=== PATIENT | female | born 1955 | race Caucasian/White ===

== ENCOUNTER 2016-10-30 16:58 | Emergency (ER) | payer BC ==
[2016-10-30] MEDS ORDERED: NS 0.9% 1000 ML* 2,000 ML IV ONE (18:45)
[2016-10-30] MEDS ORDERED: Ketorolac INJ* 30 MG/ML 1 ML VIAL IV ONE (18:45)
[2016-10-30 19:16] LABS: Hematocrit 45 % (35-47); Hemoglobin 15.2 g/dl (12.0-16.0); Mean Corpuscular HGB Conc 34 g/dl (31-36); Mean Corpuscular Hemoglobin 31 pg (27-31); Mean Corpuscular Volume 92 fL (80-97); Mean Platelet Volume 9 um3 (7.4-10.4); Red Blood Count 4.89 10^6/ul (4.0-5.4); Red Cell Distribution Width 13 % (10.5-15); White Blood Count 25.8 10^3/ul (3.5-10.8)
[2016-10-30 19:17] LABS: Add Diff/Slide Review? Slide Review Added; Comments Flag Yes
[2016-10-30 19:21] LABS: Urine Bacteria Absent (Absent); Urine Bilirubin Negative (Negative); Urine Glucose Negative (Negative); Urine Nitrite Negative (Negative)
[2016-10-30 19:28] LABS: Albumin 4.2 g/dL (3.2-5.2); BUN/Creatinine Ratio 11.8 (8-20); Calcium 9.4 mg/dL (8.6-10.3); EGFR African American 113.1 (>60); Globulin 3.1 g/dL (2-4); Potassium 3.8 mmol/L (3.5-5.0); Total Bilirubin 0.7 mg/dL (0.2-1.0); Total Protein 7.3 g/dL (6.4-8.9)
--- NOTE | 2016-10-30 19:28 | RAD ---
INDICATION: Fever and cough. COMPARISON: There are no prior studies available for comparison. TECHNIQUE: Dual-energy PA and lateral views of the chest were obtained. FINDINGS: The heart is within normal limits in size. Mediastinal and hilar contours appear within normal limits. The lungs are hyperinflated. There is a small infiltrate within the right middle lobe. No pleural effusion is seen. There is a 1.0 x 0.6 cm nodular density which projects over the left upper lobe only seen in the PA view. IMPRESSION: 1. POSSIBLE LEFT UPPER LOBE PULMONARY NODULE RECOMMEND A FOLLOW-UP NONCONTRAST CT OF THE CHEST FOR FURTHER EVALUATION. 2. SMALL RIGHT MIDDLE LOBE INFILTRATE.
[2016-10-30 19:30] LABS: Troponin I 0.01 ng/mL (<0.04)
[2016-10-30] MEDS ORDERED: Levofloxacin TAB* 250 MG PO ONE (20:00)
--- NOTE | 2016-10-30 20:20 | ED ---
I, Oh,Sadie, scribed for Junior Jordan MD on 10/30/16 at 1846 . HPI Febrile Illness - HPI Summary HPI Summary: This 61 y/o female presents to ED from [facility] for elevated temperature with reported temperature of 102 F. Negative rash, YU, neck pain, n/ v, or sore throat. Positive productive cough, rhinorrhea, decreased appetite, fatigue, and right lower back pain. Hematuria is reported from urgent care. She has been taking Sudafed to control her congestion. Pt dnenies any known tick bite or injury. PMHx includes UTI, borderline HTN that is not controlled with any medication, and COPD. Pt is a smoker. Primary care involves Dr. Rockwell at [place]. - History of Current Complaint Chief Complaint: EDFever Time Seen by Provider: 10/30/16 18:35 Hx Obtained From: Patient Onset/Duration: Started Weeks Ago, Atraumatic, Still Present Timing: Constant Pain Intensity: 0 Pain Scale Used: 0-10 Numeric Aggravating Factors: Nothing Alleviating Factors: Nothing - Allergy/Home Medications Allergies/Adverse Reactions: Allergies Allergy/AdvReac Type Severity Reaction Status Date / Time Sulfa Antibiotics Allergy Intermediate Rash Verified 10/30/16 17:13 PMH/Surg Hx/FS Hx/Imm Hx Cardiovascular History: Reports: Hx Hypertension - borderline Respiratory History: Reports: Hx Chronic Obstructive Pulmonary Disease (COPD) History: Reports: Other Problems/Disorders - UTI Infectious Disease History: No Infectious Disease History: Denies: Traveled Outside the [place] in Last 30 Days - Family History Known Family History: Negative: Hypertension - Social History Alcohol Use: Daily Hx Tobacco Use: Yes Review of Systems Positive: Fever Positive: Nasal Discharge, Other - head congestion. Negative: Sore Throat Positive: Cough - productive cough. Negative: Shortness Of Breath Positive: hematuria Negative: Rash All Other Systems Reviewed And Are Negative: Yes Physical Exam - Summary Physical Exam Summary: The patient is well-nourished inmild distress. The skin is hot to touch and dry. HEENT: The head is normocephalic and atraumatic. The pupils are equal and reactive. The conjunctivae are clear and without drainage. Nares are patent and without drainage. Mouth reveals moist mucous membranes and the throat is without erythema and exudate. The external ears are intact. The ear canals are patent and without drainage. The tympanic membranes are intact. Tenderness to percussion to right maxillary sinus. Neck is supple with full range of motion and non-tender. Supple. Negative lymphadenopathy,. There are no carotid bruits. There is no neck vein distension. Respiratory: Chest is non-tender. Lungs are clear to auscultation and breath sounds are symmetrical and equal. Cardiovascular: Hear is regular rate and rhythm. There is no murmur or rub auscultated. There is no peripheral edema and pulses are symmetrical and equal. Abdomen: The abdomen is soft and non-tender. There are normal bowel sounds heard in all four quadrants and there is no organomegaly palpated. Negative CVA tenderness. Musculoskeletal: There is no back pain noted. Extremities are non-tender with full range of motion. There is 3 seconds capillary refill. There is no peripheral edema or calf tenderness elicited. Neurological: Patient is alert and oriented to person, place and time. The patient has symmetrical motor strength in all four extremities. Cranial nerves are grossly intact. Deep tendon reflexes are symmetrical and equal in all four extremities. Psychiatric: The patient has an appropriate affect and does not exhibit any anxiety or depression. warm to touch Triage Information Reviewed: Yes Vital Signs On Initial Exam: Initial Vitals Temp Pulse Resp BP Pulse Ox 99.0 F 100 16 144/86 97 10/30/16 17:01 10/30/16 17:01 10/30/16 17:01 10/30/16 17:01 10/30/16 17:01 Vital Signs Reviewed: Yes Diagnostics - Vital Signs Vital Signs Temp Pulse Resp BP Pulse Ox 10/30/16 17:01 99.0 F 100 16 144/86 97 - Laboratory Lab Results: Lab Results 10/30/16 10/30/16 10/30/16 Range/Units 18:50 18:50 18:50 WBC 25.8 H (3.5-10.8) 10^3/ul RBC 4.89 (4.0-5.4) 10^6/ul Hgb 15.2 (12.0-16.0) g/dl Hct 45 (35-47) % MCV 92 (80-97) fL MCH 31 (27-31) pg MCHC 34 (31-36) g/dl RDW 13 (10.5-15) % Plt Count 298 (150-450) 10^3/ul MPV 9 (7.4-10.4) um3 Neut % (Auto) 85.7 H (38-83) % Lymph % (Auto) 6.0 L (25-47) % [place] % (Auto) 6.8 (1-9) % Eos % (Auto) 0 (0-6) % Baso % (Auto) 1.5 (0-2) % Absolute Neuts (auto) 22.1 H (1.5-7.7) 10^3/ul Absolute Lymphs (auto) 1.6 (1.0-4.8) 10^3/ul Absolute Monos (auto) 1.8 H (0-0.8) 10^3/ul Absolute Eos (auto) 0 (0-0.6) 10^3/ul Absolute Basos (auto) 0.4 H (0-0.2) 10^3/ul Absolute Nucleated RBC 0.02 10^3/ul Nucleated RBC % 0.1 INR (Anticoag Therapy) 1.02 (0.89-1.11) APTT 33.5 (26.0-36.3) seconds Sodium (133-145) mmol/L Potassium (3.5-5.0) mmol/L Chloride (101-111) mmol/L Carbon Dioxide (22-32) mmol/L Anion Gap (2-11) mmol/L BUN (6-24) mg/dL Creatinine (0.51-0.95) mg/dL Est GFR ( Amer) (>60) Est GFR (Non-Af Amer) (>60) BUN/Creatinine Ratio (8-20) Glucose (70-100) mg/dL Lactic Acid (0.5-2.0) mmol/L Calcium (8.6-10.3) mg/dL Total Bilirubin (0.2-1.0) mg/dL AST (13-39) U/L ALT (7-52) U/L Alkaline Phosphatase (34-104) U/L Total Creatine Kinase (10-223) U/L Troponin I (<0.04) ng/mL Total Protein (6.4-8.9) g/dL Albumin (3.2-5.2) g/dL Globulin (2-4) g/dL Albumin/Globulin Ratio (1-3) Urine Color Yellow Urine Appearance Clear Urine pH 5.0 (5-9) Ur Specific [place] 1.008 L (1.010-1.030) Urine Protein Negative (Negative) Urine Ketones 1+ H (Negative) Urine Blood 1+ H (Negative) Urine Nitrate Negative (Negative) Urine Bilirubin Negative (Negative) Urine Urobilinogen Negative (Negative) Ur Leukocyte Esterase Negative (Negative) Urine WBC (Auto) Trace(0-5/hpf) (Absent) Urine RBC (Auto) Trace(0-2/hpf) (Absent) Ur Squamous Epith Cells Present H (Absent) Urine Bacteria Absent (Absent) Urine Glucose Negative (Negative) 10/30/16 10/30/16 Range/Units 18:50 18:50 WBC (3.5-10.8) 10^3/ul RBC (4.0-5.4) 10^6/ul Hgb (12.0-16.0) g/dl Hct (35-47) % MCV (80-97) fL MCH (27-31) pg MCHC (31-36) g/dl RDW (10.5-15) % Plt Count (150-450) 10^3/ul MPV (7.4-10.4) um3 Neut % (Auto) (38-83) % Lymph % (Auto) (25-47) % [place] % (Auto) (1-9) % Eos % (Auto) (0-6) % Baso % (Auto) (0-2) % Absolute Neuts (auto) (1.5-7.7) 10^3/ul Absolute Lymphs (auto) (1.0-4.8) 10^3/ul Absolute Monos (auto) (0-0.8) 10^3/ul Absolute Eos (auto) (0-0.6) 10^3/ul Absolute Basos (auto) (0-0.2) 10^3/ul Absolute Nucleated RBC 10^3/ul Nucleated RBC % INR (Anticoag Therapy) (0.89-1.11) APTT (26.0-36.3) seconds Sodium 133 (133-145) mmol/L Potassium 3.8 (3.5-5.0) mmol/L Chloride 100 L (101-111) mmol/L Carbon Dioxide 24 (22-32) mmol/L Anion Gap 9 (2-11) mmol/L BUN 8 (6-24) mg/dL Creatinine 0.68 (0.51-0.95) mg/dL Est GFR ( Amer) 113.1 (>60) Est GFR (Non-Af Amer) 88.0 (>60) BUN/Creatinine Ratio 11.8 (8-20) Glucose 114 H (70-100) mg/dL Lactic Acid 0.8 (0.5-2.0) mmol/L Calcium 9.4 (8.6-10.3) mg/dL Total Bilirubin 0.70 (0.2-1.0) mg/dL AST 16 (13-39) U/L ALT 11 (7-52) U/L Alkaline Phosphatase 92 (34-104) U/L Total Creatine Kinase 27 (10-223) U/L Troponin I 0.01 (<0.04) ng/mL Total Protein 7.3 (6.4-8.9) g/dL Albumin 4.2 (3.2-5.2) g/dL Globulin 3.1 (2-4) g/dL Albumin/Globulin Ratio 1.4 (1-3) Urine Color Urine Appearance Urine pH (5-9) Ur Specific [place] (1.010-1.030) Urine Protein (Negative) Urine Ketones (Negative) Urine Blood (Negative) Urine Nitrate (Negative) Urine Bilirubin (Negative) Urine Urobilinogen (Negative) Ur Leukocyte Esterase (Negative) Urine WBC (Auto) (Absent) Urine RBC (Auto) (Absent) Ur Squamous Epith Cells (Absent) Urine Bacteria (Absent) Urine Glucose (Negative) Result Diagrams: 10/30/16 18:50 10/30/16 18:50 Lab Statement: Any lab studies that have been ordered have been reviewed, and results considered in the medical decision making process. - Radiology CXR Xray Interpretation: Positive (See Comments) - 1. POSSIBLE LEFT UPPER LOBE PULMONARY NODULE RECOMMEND A FOLLOW-UP NONCONTRAST CT OF THE CHEST FOR FURTHER EVALUATION. 2. SMALL RIGHT MIDDLE LOBE INFILTRATE Radiology Interpretation Completed By: Radiologist Re-Evaluation - Re-Evaluation First Eval Re-Evaluation Time: 20:03 Comment: MD in room to share CXR and bloodwork to pt. She is offered admission for observation, but pt refuses. She understands that she needs to closely f/u with her primary care provider regarding nodule noted in today's CXR. She also expresses understanding that she may get worse, and is to return to ED if she develops fever, SOB, and n/v. Course/Dx - Course Assessment/Plan: Bloodwork indicates elevated WBC and CXR indicates right middle lobe pneumonia. CXR results and blood work are shared with pt, and pt is strongly recommended to f/u with her primary care doctor regarding nodule noted CXR. Pt expresses understanding. Pt is offerred admission for observation, but pt refused admission. Pt is discharged with levaquin rx and outpatient follow up. - Febrile Illness Differential Diagnoses: Bacteremia, Pneumonia, Pyelonephritis, Viremia - Diagnoses Provider Diagnoses: Pneumonia Discharge - Discharge Plan Condition: Stable Disposition: HOME Prescriptions: Levofloxacin TAB* [Levaquin TAB*] 750 mg PO DAILY #7 tab Patient Education Materials: Pneumonia (ED), Levofloxacin (By mouth) Forms: *Work Release Referrals: Beverly Rockwell MD [Primary Care Provider] - 2 Days The documentation as recorded by the Howard haro Soohyun accurately reflects the service I personally performed and the decisions made by me, Junior Jordan MD.
== END 2016-10-30 21:17 | disposition home or self-care (01) ==
LOC: ED 16:58
DX: J18.9 Pneumonia, unspecified organism (principal); R05 Cough; J34.89 Other specified disorders of nose and nasal sinuses
CPT/HCPCS: 36415; 71020; 80053; 81003; 81015; 82550; 83605; 84484; 85025; 85610; 85730; 87040; 96374; 99283; A9270-GY; J1885

== ENCOUNTER 2018-07-02 08:45 | Inpatient (IN) | payer OTHER ==
--- NOTE | 2018-07-02 09:06 | ED ---
Neurological HPI - HPI Summary HPI Summary: This pt is a 62 y/o female presenting to [facility] c/o right leg weakness and bilateral leg numbness x5 days. Pt reports she started to feel off balance and had unsteady gait since 06/27/18. Pt states she was still walking around and even went out for dinner but was unsteady. She also has been having headaches since 2 days ago. Denies back pain, urinary or fecal dysfunction, slurred speech , difficulty speaking, confusion. PMHx: HTN, for which she takes medications. She did not take antihypertensive medication today yet. - History of Current Complaint Chief Complaint: EDWeakness Stated Complaint: LOST FEELING IN LEGS PER PT Time Seen by Provider: 07/02/18 08:54 Hx Obtained From: Patient Onset/Duration: Started days ago, Still Present Timing: Constant Current Severity: Severe Neurological Deficit Location: RLE Pain Intensity: 0 - denies pain Pain Scale Used: 0-10 Numeric Character: Weak - right leg, Numbness/Tingling - bilateral legs Aggravating: Nothing Alleviating: Nothing Associated Signs and Symptoms: Positive: Unsteady Gait, Headache, Weakness - right leg, Numbness - bilateral legs. Negative: Confusion, Incontinent Bladder/ Bowel, Fever - Allergy/Home Medications Allergies/Adverse Reactions: Allergies Allergy/AdvReac Type Severity Reaction Status Date / Time Sulfa (Sulfonamide Allergy Rash Verified 07/02/18 11:20 Antibiotics) Home Medications: Home Medications Diltiazem CD CAP* [Cardizem CD CAP*] 180 mg PO DAILY 07/02/18 [History Confirmed 07/02/18] PMH/Surg Hx/FS Hx/Imm Hx Cardiovascular History: Reports: Hx Hypertension - borderline Respiratory History: Reports: Hx Chronic Obstructive Pulmonary Disease (COPD), Other Respiratory Problems/Disorders - PNA History: Reports: Other Problems/Disorders - UTI Infectious Disease History: No Infectious Disease History: Denies: Traveled Outside the [place] in Last 30 Days - Family History Known Family History: Negative: Hypertension - Social History Alcohol Use: Occasionally Substance Use Type: Reports: None Hx Tobacco Use: Yes Smoking Status (MU): Light Every Day Tobacco Smoker Review of Systems Negative: Fever Negative: incontinence Negative: Other - NEG: back pain Neurological: Other - POS: unsteady gait. NEG: confusion Positive: Headache, Weakness - right leg, Numbness - bilateral legs. Negative: Slurred Speech All Other Systems Reviewed And Are Negative: Yes Physical Exam - Summary Physical Exam Summary: VITAL SIGNS: Reviewed. GENERAL: Patient is a well-developed and nourished female who is lying comfortable in the stretcher. Patient is not in any acute respiratory distress. HEAD AND FACE: No signs of trauma. No ecchymosis, hematomas or skull depressions. No sinus tenderness. EYES: PERRLA, EOMI x 2, No injected conjunctiva, no nystagmus. EARS: Hearing grossly intact. Ear canals and tympanic membranes are within normal limits. MOUTH: Oropharynx within normal limits. NECK: Supple, trachea is midline, no adenopathy, no JVD, no carotid bruit, no c- spine tenderness, neck with full ROM. CHEST: Symmetric, no tenderness at palpation LUNGS: Clear to auscultation bilaterally. No wheezing or crackles. CVS: Regular rate and rhythm, S1 and S2 present, no murmurs or gallops appreciated. ABDOMEN: Soft, non-tender. No signs of distention. No rebound, no guarding, and no masses palpated. Bowel sounds are normal. EXTREMITIES: FROM in all major joints, no edema, no cyanosis or clubbing. NEURO: Alert and oriented x 3. Speech is normal and follows commands. Right leg weakness. SKIN: Dry and warm GCS: 15 Triage Information Reviewed: Yes Vital Signs On Initial Exam: Initial Vitals Temp Pulse Resp BP Pulse Ox 97.7 F 90 18 184/90 95 07/02/18 08:49 07/02/18 08:49 07/02/18 08:49 07/02/18 08:49 07/02/18 08:49 Vital Signs Reviewed: Yes Diagnostics - Vital Signs Vital Signs Temp Pulse Resp BP Pulse Ox 07/02/18 08:49 97.7 F 90 18 184/90 95 - Laboratory Result Diagrams: 07/02/18 09:24 07/02/18 09:24 Lab Statement: Any lab studies that have been ordered have been reviewed, and results considered in the medical decision making process. - Radiology Chest XR Radiology Interpretation Completed By: Radiologist Summary of Radiographic Findings: IMPRESSION: Stigmata of obstructive lung disease. No acute pulmonary or cardiac process evident. Dr. Garibay has reviewed this report. - CT Brain CT CT Interpretation Completed By: Radiologist Summary of CT Findings: IMPRESSION: #. Subacute appearing infarct at the posterior LEFT anterior cerebral artery distribution region of the LEFT parietal lobe. The appearance does not favor a hyperacute ischemic infarct which is concordant with the provided history indicating symptoms began last Monday. #. Increased density in the same distribution with less prominent finding at the contralateral posterior RIGHT parietal lobe is concerning for probable laminar necrosis. Given this appearance without a prior exam to document chronicity a small volume of subarachnoid hemorrhage is not excluded at this time. Similar findings at the bilateral posterior parietal lobes may reflect a variant arterial anatomy involving the anterior cervical artery where both A2 segments are supplied bu a solitary A1 segment with ischemic or embolic disease affecting the bilateral anterior cerebral artery distributions. Consider MRI and MRA or CTA for further assessment. Results discussed with Dr. Garibay ast 0930 hours July 02, 2017. CTA Head/Neck CT Interpretation Completed By: Radiologist Summary of CT Findings: IMPRESSION: 1. Atherosclerosis. 2. 50% short segment stenosis of left internal carotid artery. 3. There is an azygos configuration of the A2 segment of the anterior cerebral arteries with moderate fusiform narrowing of this segment of the PASHA. 4. 1.7 CM nodule of the left upper lobe concerning for neoplasm. Recommend consideration of correlation with PET/CT and/ or tissue sampling. Dr. Garibay has reviewed this report. - EKG 09:16 Cardiac Rate: NL - at 80 bpm EKG Rhythm: Sinus Rhythm EKG Comparison: Other - no prior for comparison Summary of EKG Findings: No ST elevations. - Additional Comments Diagnostic Additional Comments: MRI Brain, as read by radiologist IMPRESSION: Multifocal subacute nonhemorrhagic infarcts of the PASHA territories bilaterally. NIH Scale - NIH Scale Level of Consciousness: Alert/Keenly Responsive Ask Patient the Month and His/Her Age: Both Correct Ask Pt to Open/Close Eyes and Technical Healthcare Consultant/Release Non-Paretic Hand: Both Correctly Best Gaze (Only Horizontal Eye Movement): Normal Visual Field Testing: No Visual Loss Facial Paresis-Pt to Smile & Close Eyes or Grimace Symmetry: Normal/Symmetrical Motor Function - Right Arm: No Drift-Holds 10 Seconds Motor Function - Left Arm: No Drift-Holds 10 Seconds Motor Function - Right Leg: Effort Against [place] Motor Function - Left Leg: No Drift-Holds 10 Seconds Limb Ataxia-Must be out of Proportion to Weakness Present: Present in One Limb Sensory (Use Pinprick to Test Arms/Legs/Trunk/Face): Pinprick Less on Affected Best Language (Describe Picture, Name Items): No Aphasia Dysarthria (Read Several Words): Normal Extinction and Inattention: No Abnormality Total Score: 4 Course/Dx - Course Assessment/Plan: This patient is a 62-year-old female who presents to the emergency room with a chief complaint of having unsteady gait, and right and leg weakness. Blood work without any significant abnormality except for glucose of 106, alkaline phosphatase of 105. Head CT IMPRESSION: #. Subacute appearing infarct at the posterior LEFT anterior cerebral artery distribution region of the LEFT parietal lobe. The appearance does not favor a hyperacute ischemic infarct which is concordant with the provided history indicating symptoms began last Monday. #. Increased density in the same distribution with less prominent finding at the contralateral posterior RIGHT parietal lobe is concerning for probable laminar necrosis. Given this appearance without a prior exam to document chronicity a small volume of subarachnoid hemorrhage is not excluded at this time. Similar findings at the bilateral posterior parietal lobes may reflect a variant arterial anatomy involving the anterior cervical artery where both A2 segments are supplied by a solitary A1 segment with ischemic or embolic disease affecting the bilateral anterior cerebral artery distributions. Consider MRI and MRA or CTA for further assessment. Discussed the case with Dr. Schultz from neurology and he recommends for the patient to get a CTA of head and neck, MRI without contrast of the brain and admit the patient to the hospitalist. Also he requested to hold the aspirin until we get the CTA results. Therefore I discussed my physical exam, findings and test results with Dr. Olvera from the hospitalist services who will admit the patient to her services for further workup and management. Patient is hemodynamically stable, alert and oriented 3. - Diagnoses Provider Diagnoses: Ischemic cerebrovascular accident (CVA) - Physician Notifications Discussed Care Of Patient With: Hugo Prabhakar Time Discussed With Above Provider: 09:30 Instructed by Provider To: Other - Dr. Prabhakar reports brain CT results. [09:48 ] Discussed the case with Dr. Schultz, neurologist, who recommends CTA neck/head, brain MRI and admission to the hospitalist. Dr. Schultz also recommends to hold aspirin until CTA results. [09:58] Discussed with Dr. Olvera, hospitalist, who accepted the pt for admission. - Critical Care Time Critical Care Time: 75-104 min Discharge - Sign-Out/Discharge Documenting (check all that apply): Patient Departure - Admit to [facility] All imaging exams completed and their final reports reviewed: Yes Patient Received Moderate/Deep Sedation with Procedure: No - Discharge Plan Condition: Stable Disposition: ADMITTED TO [facility] - Billing Disposition and Condition Condition: STABLE Disposition: Admitted to [facility] - Attestation Statements Document Initiated by Scribe: Yes Documenting Scribe: Trista Fontaine Provider For Whom Scribe is Documenting (Include Credential): Hugo Garibay MD Scribe Attestation: Trista Miguel, scribed for Hugo Garibay MD on 07/02/18 at 1842. Scribe Documentation Reviewed: Yes Provider Attestation: The documentation as recorded by the Trista haro accurately reflects the service I personally performed and the decisions made by Hugo ann MD Status of Scribe Document: Viewed
[2018-07-02 09:32] LABS: ABS Basophils 0.1 10^3/ul (0-0.2); ABS Eosinophils 0.2 10^3/ul (0-0.6); ABS Lymphocytes 3.1 10^3/ul (1.0-4.8); ABS Monocytes 0.8 10^3/ul (0-0.8); ABS Neutrophils 6.5 10^3/ul (1.5-7.7); ABS Nucleated RBC 0 10^3/ul; Eosinophil % 1.7 %; Hematocrit 43 % (33-41); Hemoglobin 14.8 g/dL (12.0-16.0); Lymphocyte % 29.6 %; Mean Corpuscular HGB Conc 34 g/dL (31-36); Mean Corpuscular Hemoglobin 30 pg (27-31); Mean Corpuscular Volume 89 fL (80-97); Nucleated Red Blood Cells % 0.1; Platelet Count 323 10^3/uL (150-450); Red Cell Distribution Width 13 % (10.5-15); White Blood Count 10.6 10^3/uL (3.5-10.8)
[2018-07-02 09:38] LABS: INR 0.97 (0.77-1.02)
[2018-07-02 09:55] LABS: ALT 16 U/L (7-52); AST 16 U/L (13-39); Albumin 4.3 g/dL (3.2-5.2); Albumin/Globulin Ratio 1.6 (1-3); Alkaline Phosphatase 105 U/L (34-104); Anion Gap 7 mmol/L (2-11); BUN/Creatinine Ratio 17.5 (8-20); Blood Urea Nitrogen 11 mg/dL (6-24); CO2 Carbon Dioxide 26 mmol/L (22-32); Calcium 9.2 mg/dL (8.6-10.3); Chloride 106 mmol/L (101-111); Cholesterol 200 mg/dL; EGFR African American 115.9 (>60); EGFR Non-African American 95.8 (>60); Globulin 2.7 g/dL (2-4); Glucose 106 mg/dL (70-100); LDL Cholesterol 117 mg/dL; Potassium 3.8 mmol/L (3.5-5.0); Sodium 139 mmol/L (135-145); Triglycerides 170 mg/dL
[2018-07-02 10:04] LABS: Alcohol < 10 mg/dL (<10)
[2018-07-02] MEDS ORDERED: Iohexol 350* (CONTRAST) 500 ML MDV IV ONE (10:06)
[2018-07-02] MEDS: Labetalol IV* 5 MG/ML 20 ML VIAL IV PUSH ONE ×2 (10:46→11:06)
[2018-07-02] MEDS ORDERED: Acetaminophen TAB* 325 MG PO PRN (11:14)
[2018-07-02] MEDS ORDERED: Clopidogrel TAB* 300 MG PO ONE (13:04)
[2018-07-02] MEDS: Aspirin EC TAB* 81 MG TAB.EC PO SCH (13:41)
[2018-07-02] MEDS: Heparin VIAL(*) 5000 UNITS/ML VIAL (FIVE THOUSAND) SUBCUT SCH ×2 (13:41→21:44)
--- NOTE | 2018-07-02 14:27 | HP ---
CC: Dr. Rockwell; Dr. Schultz * HISTORY AND PHYSICAL: DATE OF ADMISSION: 07/02/18 TIME OF ADMISSION: 1 p.m. CHIEF COMPLAINT: "My balance was off." HISTORY OF PRESENT ILLNESS: This is a 62-year-old female with history of hypertension, who presents to the emergency department with right leg weakness since Monday, which was 6 days ago. She says she just thought she had some vertigo and felt like her right leg was "stubborn." She did not think much of it and was able to get around without much difficulty. Her daughter says they went to the mall on Monday 4 days ago and they were able to walk around again without difficulty. Then on Monday when she was driving, which she does with her right foot, her grandson noticed that she was driving irregularly and questioned whether she was okay and she was not sure what was going on. She has a hard time explaining what exactly was going on with her driving, but she thinks that she was unable to accelerate. Then yesterday on Monday as soon as she woke up, she knew something was wrong, but she was watching her grandson, so she did not come to the emergency department. She fell a few times on to her side or her bottom and also had right leg numbness that began yesterday. She thought it was her equilibrium, but then today she could not move her leg at all, so she came to the emergency department. PAST MEDICAL HISTORY: Hypertension. HOME MEDICATIONS: 1. Tylenol 1000 mg q.6 p.r.n. pain. 2. Diltiazem 180 mg daily. ALLERGIES: SULFA. FAMILY HISTORY: She knows of no history of strokes or heart disease. SOCIAL HISTORY: She smokes a half a pack per day and she has done so since her teens. She drinks 2 beers per month. She uses no illicit drugs. Healthcare proxy is her daughter, Denisha Villarreal. REVIEW OF SYSTEMS: Negative for headache, fevers, chills, sore throat, nausea, vomiting, chest pain, shortness of breath, constipation, diarrhea. The remainder of 14-point review of systems is negative except as per the HPI. PHYSICAL EXAMINATION GENERAL: Alert, well appearing female, in no distress. She is sitting comfortably in bed. VITAL SIGNS: Temperature 98 degrees, heart rate 79, respiratory rate 17, pulse ox 97% on room air, blood pressure 141/94. HEENT: Pupils are 4 mm bilaterally and reactive to light. Oral mucosa is moist. NECK: No JVP. No cervical adenopathy. CHEST: Regular rate and rhythm. No murmurs. LUNGS: Clear bilaterally. ABDOMEN: Soft, nontender, nondistended. No guarding or rebound. No CVA tenderness. EXTREMITIES: No edema, rashes, or ulcers. NEUROLOGIC: No nystagmus. Face is symmetric. Upper extremity strength is 5/5 bilaterally. Left lower extremity is 5/5 in all planes; and the right lower extremity, she is unable to wiggle her toes, her strength at her ankle is 0/5, her strength at her knee is 2/5, her strength at her hip is 3/5. She demonstrates left- sided sensory neglect. She is oriented x3. DIAGNOSTIC STUDIES/LAB DATA: White blood cells 10.6, hemoglobin 14.8, platelets 323. INR 0.97. Sodium 139, potassium 3.8, chloride 106, bicarb 26, BUN 11, creatinine 0.63, glucose 106, lactic acid 0.9. Cholesterol 200, LDL 117 , HDL 49. Serum alcohol less than 10. Imaging: Brain CT, subacute appearing infarct at the posterior left PASHA distribution region in the left parietal lobe. The appearance does not favor hyperacute ischemic infarct which can coordinate with provided history and again symptoms began last Monday and increased density in the same distribution with left prominent finding at the contralateral posterior right parietal lobe considering for probable laminar necrosis. Chest x-ray: Stigmata of obstructive lung disease, no acute pulmonary or cardiac process evident. Head CTA: Atherosclerosis, 50% short segment stenosis of the left ICA. There has been azygous configuration of the A2 segments of the anterior cerebral arteries with moderate fusiform narrowing of the segment of the PASHA, 1.7 cm nodule of the left upper lobe concerning for neoplasm. Brain MRI: Multifocal subacute nonhemorrhagic infarcts of the PASHA territories bilaterally. ASSESSMENT AND PLAN: This is a 62-year-old female with history of hypertension and tobacco use, who presents to the emergency department with right leg weakness and numbness and was found to have a subacute cerebrovascular accident. 1. 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 She has been evaluated by Neurology, who recommend admission with telemetry and echocardiogram and initiation of dual- antiplatelet therapy. I am loading her with Plavix now, adding a daily aspirin and also a statin. I have ordered PT and OT and a PMRU evaluation and appreciate any further neurologic recommendations. For now, we will continue her home antihypertensive medications and aim for normotension to slightly elevated blood pressures. 2. Lung nodule: Given her long history of tobacco abuse, this is concerning for malignancy. She will need close outpatient followup. We have discussed this finding with her. 3. Hypertension: Continue home Cardizem. She did receive 20 mg of IV labetalol in the emergency department with little effect. 4. DVT prophylaxis: Heparin subcu. 5. Diet: Unrestricted. 6. Disposition: Admit to telemetry with a neurology consult. [id number]/[facility] #: [id number] ENRIQUE
--- NOTE | 2018-07-02 15:09 | CONS ---
CC: Dr. Rockwell CONSULTATION REPORT: DATE OF CONSULT: 07/02/18 PRIMARY CARE PROVIDER: Dr. Rockwell. HOSPITALIST: Dr. Amanda Olvera. REASON FOR CONSULTATION: Stroke. HISTORY OF PRESENT ILLNESS: Ms. Villarreal is very nice 62-year-old female with a history of blood pressure, on diltiazem and a history of hypercholesterolemia reported, not on medication and a history of tobacco use, who presented to the hospital this morning with right lower extremity weakness. She has a somewhat complicated history in that apparently her symptom started last Monday. At that time, she states that she felt off balance and she states that she felt she had more difficulty walking, but she was able to "push through." Over the next several days, her symptoms were relatively stable, but on Monday night or early Monday morning at one point she became more weak in the right lower extremity. Monday night, she was driving with her grandson and her grandson asked her why she was having such a hard time driving. She stated that she was having a hard time pressing the pedal down with her right foot. Yesterday, she states that her symptoms worsened, and in this morning, she had almost no movement at all of the right lower extremity. She also noted numbness in the right lower extremity. Based on that, she was brought to the ER and subsequent CT scan of the brain showed subacute appearing infarct in the posterior left anterior cerebral artery distribution. MRI of the brain done subsequently showed multifocal subacute nonhemorrhagic infarcts of the PASHA territory bilaterally. Based on this, the patient was admitted for further workup. She notes no numbness, tingling, or weakness in her left leg. She notes no numbness , tingling, or weakness in her arms bilaterally. She has noted no facial droop , no double vision, has had no problem swallowing or speaking, has had no word finding difficulties. She notes no significant bladder or bowel incontinence. No difficulty reading or writing. Besides the right lower extremity weakness, she states that she feels essentially okay. She notes no palpitations or chest pain, no shortness of breath or dyspnea on exertion. She has noted no swelling in her lower extremities, no skin changes. She states that she has been taking her medications regularly, although she did not take her blood pressure this morning, and when she came to the ER, she was given a 1-time dose of labetalol for elevated blood pressure. She has never had any similar episodes. She has no history of prior strokes, heart attacks, seizures, or other neurologic problems. PAST MEDICAL HISTORY: Includes high blood pressure, reported hypercholesterolemia, reported history of COPD. She denies any recent travel. MEDICATIONS: Her home medications include: 1. Diltiazem 180 mg daily. 2. Tylenol p.r.n. ALLERGIES: SULFA drugs. FAMILY HISTORY: Negative for any high blood pressure, diabetes, strokes, or other neurologic issues. SOCIAL HISTORY: She states that she smokes 10 cigarettes a day, although she smoked heavier in the past. She has been doing so for many years. She denies any significant alcohol use and notes that she has had 2 beers in the last month. She denies any drug use. She is retired, worked at [employer]. Daughter is at her side. REVIEW OF SYSTEMS: Review of systems in 14 organ systems as noted above in the HPI, otherwise negative. She notes no recent illnesses, fevers, chills, night sweats, skin rashes or lesions, recent travel, musculoskeletal aches or pains, falls. No head trauma. She does note that she fell on her buttocks at least once and has felt unsteady in her gait as noted above. No urinary or bowel complaints other than 1 episode of urge incontinence this morning because she could not make it to the bathroom. PHYSICAL EXAMINATION: Vital Signs: Temp of 98; blood pressure when she arrived was 184/90, subsequently has been in the 150s to 160s/70s to 90s; pulse rate in the 70s; respiratory rate 16 to 18; pulse ox 94% to 97% on room air. In general, she is a well-nourished, well-developed female, in no acute distress. She is sitting in her hospital bed. Her daughter is at the bedside. She is pleasant, well dressed, well groomed. HEENT: She is normocephalic, atraumatic. Sclerae are anicteric. Mucous membranes are moist. Oropharynx is clear. Nares are patent. Neck is supple. No thyromegaly. No carotid bruits. No meningismus. Chest: Clear to auscultation bilaterally. Cardiovascular is regular rate and rhythm. No murmurs or gallops. Abdomen is nontender, nondistended. Extremities: There is no clubbing, cyanosis, or edema. Her skin is warm and dry with no lesions or rashes. Neurologic exam, she is awake, alert, and oriented x3. Her speech is fluent. There is no dysarthria. Repetition is intact. Recall of recent and remote events is intact. Vocabulary is intact. Her mood is dysthymic. Affect is mood congruent. Cranial Nerves: Pupils are equally round and reactive to light and accommodation. Extraocular muscles are intact with no nystagmus or diplopia. No ptosis. Visual lomeli are full to confrontation. Face is symmetric. Facial sensation intact to light touch throughout. Hearing is intact. Palate raises symmetrically. Tongue is midline. Sternocleidomastoid and trapezius 5/5. Her upper extremity motor exam, normal tone and bulk 5/5 throughout, no weakness. Left lower extremity 5/5 throughout, normal tone and bulk, no weakness. Right lower extremity, profound weakness distally. She has no movement. She has 2/5 knee flexion and extension. She has 3 hip flexion. DTRs are down throughout; 1+ and symmetric in the upper extremities, biceps, brachioradialis; 1+ at the patellae bilaterally. Downgoing Babinski's. Achilles 1+. Her sensation, she has markedly diminished light touch and pinprick. Vibration and proprioception in the right lower extremity otherwise intact throughout. She has neglect of the right leg with double simultaneous extinction. She has no tremors appreciated at rest or with movement. Rapid alternating movements are intact throughout except for the right lower extremity , she is unable to perform any movements. Gait cannot be tested because she is unstable on her feet. DIAGNOSTIC STUDIES/LAB DATA: Brain MRI: The films were reviewed. Impression: Multifocal subacute nonhemorrhagic infarcts of the PASHA territories bilaterally. No hemorrhages appreciated. The strokes are greater on the left than the right. CTA of the head and neck, she has patent right vertebral and left vertebral arteries without stenosis. Left internal carotid artery, there is atheromatous disease with short-segment stenosis of the proximal left internal carotid artery measuring up to 50%. The right carotid artery shows some atheromatous disease with no stenosis. CT angiogram of the head was done, shows an azygous configuration of the A2 segment of the anterior cerebral artery with moderate fusiform narrowing of the A2 segment. Elsewhere, there is mural irregularity consistent with intracranial atherosclerosis without vascular malformation, occlusion, or stenosis. The anterior communicating artery complex is clear, bilateral posterior communicating arteries are identified. There is a 1.7 cm nodule of the left upper lobe concerning for neoplasm, recommending consideration of correlation with PET or CT scan or tissue sampling. Brain CT showed subacute appearing infarct in the posterior left anterior cerebral artery distribution in the region of the left parietal lobe, appearance does not favor a hyperacute ischemia or infarct which is concordant with provided history, increased density in the same distribution with less prominent findings at the contralateral posterior right parietal lobe concerning for probable laminar necrosis given the appearance that a prior examination did document chronicity, a small volume of subarachnoid hemorrhage is not excluded. Similar findings at the bilateral posterior parietal lobes may reflect a variant arterial anatomy involving an anterior cervical artery where both A2 segments are supplied by a solitary A1 segment with ischemic or embolic disease affecting the bilateral anterior cerebral artery distributions. Chest x-ray showed stigmata of chronic obstructive lung disease, no pulmonary or cardiac processes identified. No focal pulmonary lesions were identified. She had a CBC with diff with an RBC of 4.90, hematocrit of 43. INR of 0.97. Complete metabolic profile with a glucose of 106, alk phos of 105, triglyceride 170, cholesterol 200, LDL 117, HDL 49, serum alcohol less than 10. ASSESSMENT AND PLAN: 1. Ms. Villarreal is a 62-year-old female with a history of multiple risk factors including hypertension, on diltiazem at home; hypercholesterolemia; chronic obstructive pulmonary disease with a smoking history, who presents to the hospital with right lower extremity weakness and balance issues, which apparently started last Monday and it progressed. Monday night it appears that she may have had some acute worsening with more right lower extremity weakness and numbness, and yesterday, it continued to progress. This morning, she came into the hospital with dense paresis of the right lower extremity with some movement proximally and loss of sensation in the right lower extremity. MRI shows strokes in an anterior cerebral artery distribution bilaterally, left greater than right consistent with her findings. The plan is to admit her for further stroke workup including an echocardiogram with bubble to look for any cardioembolic source. We will start her on a loading dose of Plavix 300 mg and then subsequently 75 mg a day as well as aspirin 81 mg a day for 30 days and then continue aspirin only. At this point, I would work to start to get her blood pressure under better control. It appears that her symptoms have been ongoing for some time, so I do not think we need to allow for extreme permissive hypertension. I would strive to slowly correct and control her blood pressure over the next day or so. 2. Cholesterol. She is now on a statin. I would recommend continuing this with goal LDL of less than 70 as an outpatient. 3. Smoking cession is a primary goal at this point given her new stroke and risks. We will continue to reinforce this during her hospitalization. 4. She has no evidence of diabetes. We will need to monitor for this group home. 5. She has a pulmonary nodule noted on brain imaging, which needs followup studies. Defer to primary team for further recommendations 6. She will need physical therapy and occupational therapy as an inpatient and may be a candidate for acute rehab, we will have to see how she does. I will continue to follow her closely and make further recommendations as necessary. Thank you for the opportunity to participate in the care of this very interesting patient. [id number]/[facility] #: [id number] ENRIQUE
--- NOTE | 2018-07-02 15:22 | ECHO ---
Patient: VIRGIL BLEVINS [facility] Rec#: [id number] : 1955 Date: 07/02/2018 Age: 62y Height: 163 cm / 64.2 in Weight: 61 kg / 134.4 lbs Sex: F BSA: 1.66 Room#: [facility] Admit Date#: 07/02/2018 Type: Inpatient Referring: Amanda Olvera MD Reading: Sachin Tovar MD [employer]: Paris Cobos,RDCS,RDMS CC: Beverly Rockwell MD Transthoracic Echocardiogram Indication: CVA BP: 141/94 HR: 66 Rhythm: NSR Findings History: HTN Technical Comments: The study quality is fair. The study is technically limited due to poor parasternal windows. Left Ventricle: The left ventricular chamber size is decreased. Mild concentric left ventricular hypertrophy is observed. Global left ventricular wall motion and contractility are within normal limits. There is normal left ventricular systolic function. The estimated ejection fraction is 60-65%. There is an E to A reversal in the mitral valve flow pattern suggestive of diastolic dysfunction. Left Atrium: The left atrial chamber size is normal. Right Ventricle: The right ventricular chamber size and systolic function are within normal limits. Right Atrium: The right atrial cavity size is normal. The bubble study is negative. A patent foramen ovale is not demonstrated with color Doppler and agitated contrast. Aortic Valve: The aortic valve is trileaflet. There is no evidence of aortic valve thickening. Systolic excursion of the aortic valve is normal. There is no evidence of aortic regurgitation. There is no evidence of aortic stenosis. Mitral Valve: The mitral valve leaflets appear normal. There is no evidence of mitral regurgitation. There is no evidence of mitral stenosis. Tricuspid Valve: The tricuspid valve leaflets are normal. There is no evidence of tricuspid valve regurgitation. Pulmonic Valve: The pulmonic valve structure is not well visualized. Pericardium: There is no significant pericardial effusion. Aorta: The aortic root appears normal. The ascending aorta is not well visualized. There is no dilatation of the aortic arch. The aortic root is normal in size. Pulmonary Artery: The main pulmonary artery is not well visualized. Venous: The inferior vena cava appears normal in size. There is a greater than 50% respiratory change in the inferior vena cava dimension. Contrast: Intravenous agitated saline contrast was used to assess intracardiac shunting. Images 70 -72. Summary: There was not any prior study for comparison. Conclusions Mild concentric left ventricular hypertrophy is observed. Global left ventricular wall motion and contractility are within normal limits. There is normal left ventricular systolic function. The estimated ejection fraction is 60-65%. The right ventricular chamber size and systolic function are within normal limits. There is no evidence of aortic stenosis. There is no evidence of mitral regurgitation. There is no evidence of tricuspid valve regurgitation. There is no significant pericardial effusion. A patent foramen ovale is not demonstrated with color Doppler and agitated contrast. Measurements Name Value Normal Range RVIDd (AP) 2D 1.9 cm (0.9 - 2.6) RVDdMajor (2D) 2.3 cm (2.2 - 4.4) RAd ISD 4CH 4.4 cm (3.4 - 4.9) RA (A4C)W 3.1 cm (2.9 - 4.6) IVSd (2D) 1.1 cm (0.6 - 1) LVPWd (2D) 1.1 cm (0.6 - 1) LVIDd (2D) 3.3 cm (3.6 - 5.4) Aortic Annulus 2 cm (1.4 - 2.6) Ao root diameter (2D) 3.1 cm (2.1 - 3.5) Aortic arch 2.6 cm (1.8 - 3.4) LA dimension (AP) 2D 3 cm (2.3 - 3.8) LAd ISD 4CH 4.9 cm (2.9 - 5.3) LA ISD 4CH W 3.8 cm (2.5 - 4.5) Name Value Normal Range LA ESV BP (A/L) index 24 ml/m2 - Name Value Normal Range MV E-wave Vmax 0.7 m/sec - MV deceleration time 145 msec - MV A-wave Vmax 0.9 m/sec - MV E:A ratio 0.7 ratio - LV septal e' Vmax 0.07 m/sec - LV lateral e' Vmax 0.08 m/sec - LV E:e' septal ratio 10 ratio - LV E:e' lateral ratio 9 ratio - Name Value Normal Range AV Vmax 1.2 m/sec - AV VTI 27 cm - AV peak gradient 6 mmHg - AV mean gradient 3 mmHg - LVOT Vmax 1.1 m/sec - LVOT VTI 27 cm - LVOT peak gradient 5 mmHg - LVOT mean gradient 3 mmHg - ALFREDITO Vmax 0.7 m/sec - Name Value Normal Range RAP 8 mmHg - IVC diameter 1.6 cm -
[2018-07-02] MEDS: Nicotine PATCH 14 MG/24 HR* PATCH TRANSDERM SCH (16:59)
[2018-07-02] MEDS: Atorvastatin* 40 MG TAB PO SCH (21:43)
[2018-07-03] MEDS: Nicotine Patch Removal NOTE FOLLOW UP SCH (05:37)
[2018-07-03] MEDS: Heparin VIAL(*) 5000 UNITS/ML VIAL (FIVE THOUSAND) SUBCUT SCH ×3 (05:37→20:54)
--- NOTE | 2018-07-03 07:47 | PN ---
Subjective Date of Service: 07/03/18 Length of Stay: 1 Days Neurology is following for evaluation of PASHA stroke Interval History: I reviewed nurses notes, spoke to her nurse this am and reviewed tele (? AVB). No significant events overnight. The patient feels better, no more dizziness. She is able to ambulate with a walker and assist, "I have problems lifting my right leg" but does feel improved. No bladder or bowel issues. She feels that the numbness is improving in her right leg. Denies any new focal numbness, tingling or weakness. Expressing interest in smoking cessation. Family History: Unchanged from Admission Social History: Unchanged from Admission Past Medical History: Unchanged from Admission Objective Active Medications: Acetaminophen (Tylenol Tab*) 650 mg PO Q4H PRN PRN Reason: FEVER/PAIN Aspirin (Aspirin Ec Tab*) 81 mg PO DAILY [facility] Last Admin: 07/02/18 13:41 Dose: 81 mg Atorvastatin Calcium (Lipitor*) 40 mg PO 2100 [facility] Last Admin: 07/02/18 21:43 Dose: 40 mg Clopidogrel Bisulfate (Plavix Tab*) 75 mg PO DAILY [facility] Diltiazem HCl (Cardizem Cd Cap*) 180 mg PO DAILY [facility] Heparin Sodium (Porcine) (Heparin Vial(*)) 5,000 units SUBCUT Q8HR [facility] Last Admin: 07/03/18 05:37 Dose: 5,000 units Nicotine (Nicotine Patch 14 Mg/24 Hr*) 1 patch TRANSDERM DAILY [facility] Last Admin: 07/02/18 16:59 Dose: 1 patch Pharmacy Profile Note (Nicotine Patch Removal Note*) 1 note FOLLOW UP 0600 [facility] Last Admin: 07/03/18 05:37 Dose: 1 note Vital Signs 07/02/18 07/02/18 07/02/18 08:49 09:12 09:31 Temperature 97.7 F Pulse Rate 90 83 81 Respiratory 18 18 17 Rate Blood Pressure 184/90 161/99 (mmHg) O2 Sat by Pulse 95 96 92 Oximetry 07/02/18 07/02/18 07/02/18 10:00 10:46 10:51 Temperature Pulse Rate 73 76 76 Respiratory 16 20 23 Rate Blood Pressure 136/86 161/75 (mmHg) O2 Sat by Pulse 95 94 94 Oximetry 07/02/18 07/02/18 07/02/18 11:00 11:02 11:09 Temperature Pulse Rate 72 73 78 Respiratory 14 16 18 Rate Blood Pressure 169/78 159/74 (mmHg) O2 Sat by Pulse 95 95 95 Oximetry 07/02/18 07/02/18 07/02/18 12:07 12:09 12:27 Temperature 98 F Pulse Rate 76 74 79 Respiratory 17 Rate Blood Pressure 162/96 141/94 (mmHg) O2 Sat by Pulse 94 95 97 Oximetry 07/02/18 07/02/18 07/02/18 13:15 15:05 19:09 Temperature 97.8 F 98.7 F 97.9 F Pulse Rate 75 84 76 Respiratory 20 16 20 Rate Blood Pressure 151/70 136/69 156/68 (mmHg) O2 Sat by Pulse 96 97 97 Oximetry 07/02/18 07/02/18 07/03/18 19:34 23:23 04:00 Temperature 98.0 F 97.8 F Pulse Rate 82 79 Respiratory 16 20 16 Rate Blood Pressure 143/95 164/81 (mmHg) O2 Sat by Pulse 97 97 Oximetry Intake and Output Last 24 Hours 07/01/18 07/02/18 07/03/18 07/04/18 06:59 06:59 06:59 06:59 Intake Total 720 Output Total 0 Balance 720 Weight 131 lb 11.2 oz Intake: Oral 720 Output: Urine 0 Other: Estimated Void Small Oxygen Devices in Use Now: None Neurology Exam: General: Well nourished, well developed, and in no acute distress HEENT: Normocephalic/atraumatic, sclera anicteric, mucous membranes moist Neck: Supple Chest: Clear to auscultation bilaterally Cardiovascular: Regular rate and rhythm without murmurs, rubs, gallops Abdomen: Soft, non-tender/non-distended Extremities: No clubbing, cyanosis, or edema Neurological Findings: Awake, alert, and oriented to person, place, and time. Speech: fluent without dysarthria, repetition intact Cranial Nerve: PERRL, EOM intact, VFF, no nystagmus, face symmetric bilaterally , facial sensation intact, hearing intact to finger rub bilaterally, palate elevates symmetrically, tongue midline Motor: 5/5 with normal tone in the upper extremities and LLE. RLE 3/5 proximally (able to weight bear), 2/5 distally, tone is decreased Sensation: At least 50% reduction in LT/PP in the RLE. Some neglect in the LLE Deep Tendon Reflex: 1+ symmetric in the upper/lower extremities, Babinski - down going Finger to nose, rapid alternating movements intact without tremor Gait: I did ambulate her today, using walker and assist, difficulty lifting the right leg and dragging the right foot. Result Diagrams: 07/02/18 09:24 07/02/18 09:24 Diagnostic Imagin. MRI Brain: Films reviewed: Multifocal subacute non-hemorrhagic infarcts in the PASHA territory 2. Echo: Conclusions: Mild concentric left ventricular hypertropy is observed Normal left ventricular systolic function EF 60-655 Valves ok No PFO CTA: Films reviewed: Impression: 1. Atherosclerosis 2. 50% short segment stenosis of the L ICA 3. 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 1.7 cm nodule of the left upper lobe concerning for neoplasm Assessment/Plan 62 year old with a history of HTN, HLP, Smoking who presents with almost 1 week history of neurologic change, worsening weakness of the RLE and some balance issues, with acute worsening 1-2 days prior to admission. Bilateral strokes in PASHA distribution, L>R with RLE weakness as the main presentation. 1. Stroke workup is complete. Studies reviewed. 2. Continue DAPT (ASA and Plavix) for 30 days and then continue aspirin 81mg q day 3. Continue statin at discharge, assisted goal is LDL < 70. Can follow up with PCP for intermediate management 4. Continue to normalize blood pressure. Medication adjustment per primary 5. She is a non-diabetic 6. Smoking cessation: She currently has a nicotine patch in place and is expressing interest in permanent smoking cessation. I encouraged her to stop and explained the absolute importance of smoking cessation regarding stroke prevention 7. She will need PT/OT. She is reluctant to stay for PM&R although I encouraged her to follow recommendations of PT. She will need continued outpatient PT/OT. I told her not to drive for the time being as she cannot control her RLE well enough. I expect some recovery although she may be left with some permanent weakness 8. You can schedule follow up in my office for 8-12 weeks. I will sign off for now, no further workup necessary from neurologic standpoint. I told her to return to the ER immediately with any new stroke like symptoms and to remain compliant with her medications, smoking cessation, PT/OT and doctor appointments. I will be available for any further questions or concerns. Do not hesitate to contact me.
[2018-07-03] MEDS: Clopidogrel TAB* 75 MG PO SCH (09:00)
[2018-07-03] MEDS: Nicotine PATCH 14 MG/24 HR* PATCH TRANSDERM SCH (09:00)
[2018-07-03] MEDS: Aspirin EC TAB* 81 MG TAB.EC PO SCH (09:00)
[2018-07-03] MEDS: Diltiazem CD CAP* 180 MG PO SCH (09:00)
[2018-07-03 10:25] LABS: Free T4 0.92 ng/dL (0.61-1.12)
[2018-07-03 10:33] LABS: Folate > 20.00 ng/mL (>3.99)
[2018-07-03 16:58] LABS: Urine Appearance Cloudy; Urine Bacteria Absent (Absent); Urine Bilirubin Negative (Negative); Urine Blood 1+ (Negative); Urine Color Yellow; Urine Glucose Negative (Negative); Urine Ketones Negative (Negative); Urine Nitrite Negative (Negative); Urine Protein Negative (Negative); Urine Red Blood Cell 1+(3-5/hpf) (Absent); Urine Specific Gravity 1.018 (1.010-1.030); Urine Squamous Epithelial Cell Present (Absent); Urine Urobilinogen Negative (Negative); Urine White Blood Cell 1+(6-10/hpf) (Absent)
[2018-07-03 17:13] LABS: Barbiturates Urine Screen None Detected (None Detect); Benzodiazepine Urine Screen None Detected (None Detect); Urine Cannabinoids Screen Presumptive Positive (None Detect)
--- NOTE | 2018-07-03 17:49 | PN ---
Subjective Date of Service: 07/03/18 Interval History: Strength is improving. She went for a walk with PT. She is pleased that she is getting better. Anxious to be considered for PMRU Family History: Unchanged from Admission Social History: Unchanged from Admission Past Medical History: Unchanged from Admission Objective Active Medications: Acetaminophen (Tylenol Tab*) 650 mg PO Q4H PRN PRN Reason: FEVER/PAIN Aspirin (Aspirin Ec Tab*) 81 mg PO DAILY [facility] Last Admin: 07/03/18 09:00 Dose: 81 mg Atorvastatin Calcium (Lipitor*) 40 mg PO 2100 [facility] Last Admin: 07/02/18 21:43 Dose: 40 mg Clopidogrel Bisulfate (Plavix Tab*) 75 mg PO DAILY [facility] Last Admin: 07/03/18 09:00 Dose: 75 mg Diltiazem HCl (Cardizem Cd Cap*) 180 mg PO DAILY [facility] Last Admin: 07/03/18 09:00 Dose: 180 mg Heparin Sodium (Porcine) (Heparin Vial(*)) 5,000 units SUBCUT Q8HR [facility] Last Admin: 07/03/18 13:42 Dose: 5,000 units Nicotine (Nicotine Patch 14 Mg/24 Hr*) 1 patch TRANSDERM DAILY [facility] Last Admin: 07/03/18 09:00 Dose: 1 patch Pharmacy Profile Note (Nicotine Patch Removal Note*) 1 note FOLLOW UP 0600 [facility] Last Admin: 07/03/18 05:37 Dose: 1 note Vital Signs - 8 hr 07/03/18 07/03/18 07/03/18 11:12 11:15 11:59 Temperature 97.2 F 97.2 F 98.1 F Pulse Rate 80 80 77 Respiratory 16 16 16 Rate Blood Pressure 161/87 161/87 165/67 (mmHg) O2 Sat by Pulse 97 97 96 Oximetry 07/03/18 07/03/18 15:32 15:53 Temperature 97.7 F 97.7 F Pulse Rate 81 81 Respiratory 16 16 Rate Blood Pressure 159/79 159/79 (mmHg) O2 Sat by Pulse 98 98 Oximetry Oxygen Devices in Use Now: None Appearance: alert, well appearing Eyes: No Scleral Icterus Ears/Nose/Mouth/Throat: NL Teeth, Lips, Gums Neck: NL Appearance and Movements; NL JVP Respiratory: Symmetrical Chest Expansion and Respiratory Effort, Clear to Auscultation Cardiovascular: NL Sounds; No Murmurs; No JVD Abdominal: NL Sounds; No Tenderness; No Distention Lymphatic: No Cervical Adenopathy Extremities: No Edema Skin: No Rash or Ulcers Neurological: Alert and Oriented x 3, - - hip strength 5/5, knee 4/5, ankle 3/5 Result Diagrams: 07/02/18 09:24 07/02/18 09:24 Diagnostic Imagin. MRI Brain: Films reviewed: Multifocal subacute non-hemorrhagic infarcts in the PASHA territory 2. Echo: Conclusions: Mild concentric left ventricular hypertropy is observed Normal left ventricular systolic function EF 60-655 Valves ok No PFO CTA: Films reviewed: Impression: 1. Atherosclerosis 2. 50% short segment stenosis of the L ICA 3. 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 1.7 cm nodule of the left upper lobe concerning for neoplasm Assess/Plan/Problems-Billing 62 year old woman with HTN and tobacco use who presents with 5-6 days of RLE weakness found to have b/l PASHA infarct 1. Stroke workup is complete. Studies reviewed. 2. Continue DAPT (ASA and Plavix) for 30 days and then continue aspirin 81mg q day 3. Continue statin at discharge, intermediate designer goal is LDL < 70. Can follow up with PCP for assisted management 4. Continue to normalize blood pressure. Medication adjustment per primary 5. She is a non-diabetic 6. Smoking cessation: She currently has a nicotine patch in place and is expressing interest in permanent smoking cessation. I encouraged her to stop and explained the absolute importance of smoking cessation regarding stroke prevention 7. She will need PT/OT. She is reluctant to stay for PM&R although I encouraged her to follow recommendations of PT. She will need continued outpatient PT/OT. I told her not to drive for the time being as she cannot control her RLE well enough. I expect some recovery although she may be left with some permanent weakness 8. You can schedule follow up in my office for 8-12 weeks. - Patient Problems (1) Acute CVA (cerebrovascular accident) Current Visit: Yes Status: Acute Code(s): I63.9 - CEREBRAL INFARCTION, UNSPECIFIED SNOMED Code(s): 013361533 Comment: followed by neuro asa/plavix, statin x 30 days improving needs continued PT/OT, plan for PMRU TTE, tele unremarkable (2) Lung nodule Current Visit: Yes Status: Acute Code(s): R91.1 - SOLITARY PULMONARY NODULE SNOMED Code(s): 168578780 Comment: this needs to be biopsied will touch base with sylvester/IR prior to discharge (3) Tobacco use Current Visit: Yes Status: Acute Code(s): Z72.0 - TOBACCO USE SNOMED Code( s): 139501317 Comment: nicotine patch (4) HTN (hypertension) Current Visit: Yes Status: Acute Code(s): I10 - ESSENTIAL (PRIMARY) HYPERTENSION SNOMED Code(s): 60246942 Comment: continue leim
[2018-07-03] MEDS ORDERED: Diltiazem CD CAP* 120 MG PO ONE (19:30)
[2018-07-03] MEDS ORDERED: hydrALAZINE IV* 20 MG/ML VIAL IV SLOW PU ONE (19:38)
--- NOTE | 2018-07-03 19:38 | PN ---
Hospitalist Progress Note called for BP 182/80 noted that patient takes will given prn hydralzine times one.
[2018-07-03] MEDS: Atorvastatin* 40 MG TAB PO SCH (20:54)
[2018-07-04] MEDS: Heparin VIAL(*) 5000 UNITS/ML VIAL (FIVE THOUSAND) SUBCUT SCH (05:49)
[2018-07-04] MEDS: Nicotine Patch Removal NOTE FOLLOW UP SCH (05:50)
[2018-07-04] MEDS: Clopidogrel TAB* 75 MG PO SCH (08:12)
[2018-07-04] MEDS: Nicotine PATCH 14 MG/24 HR* PATCH TRANSDERM SCH (08:12)
[2018-07-04] MEDS: Aspirin EC TAB* 81 MG TAB.EC PO SCH (08:12)
[2018-07-04] MEDS: Diltiazem CD CAP* 180 MG PO SCH (08:12)
[2018-07-04 08:27] VITALS: BP 151/73
--- NOTE | 2018-07-05 00:20 | DS ---
CC: Dr. Rockwell* DISCHARGE SUMMARY: DATE OF ADMISSION: 07/02/18 DATE OF DISCHARGE: 07/04/18 PRINCIPAL DISCHARGE DIAGNOSES: 1. Subacute cerebrovascular accident. 2. New incidental finding of a lung nodule. SECONDARY DISCHARGE DIAGNOSES: 1. Hypertension. 2. Tobacco use. MEDICATIONS AT THE TIME OF DISCHARGE: 1. Tylenol 650 q.6 p.r.n. pain. 2. Senna 2 tabs q.h.s. p.r.n. constipation. 3. Atorvastatin 40 mg q.h.s. 4. Docusate 100 mg b.i.d. 5. Nicotine patch 14 mg transdermally daily. 6. Aspirin 81 mg daily. 7. Plavix 75 mg daily. 8. Cardizem 180 mg daily. PHYSICAL EXAM AT THE TIME OF DISCHARGE: Temperature 97.9, heart rate 92, respiratory rate 16, pulse ox 97% on room air, blood pressure 137/69. General: Alert, well-appearing female, in no distress. She is sitting at the edge of the bed, visiting with her family. HEENT: Pupils are 4 mm bilaterally and reactive to light. Her oral mucosa is moist. Neck: No JVP. No adenopathy. No carotid bruits. Chest: Regular rate and rhythm. No murmurs. Her lungs are clear bilaterally. Abdomen is soft, nontender, nondistended. No CVA tenderness. Extremities: No edema, rashes, or ulcers. Neurologic: Upper extremity strength is 5+ bilaterally. Face is symmetric. No nystagmus. Right lower extremity strength is 5/5 throughout. Left lower extremity is significant for 5/5 hip strength, 4/5 knee strength, and 3/5 ankle and toe strength. Her sensation is grossly intact bilaterally. PERTINENT IMAGING ON THIS ADMISSION: A brain MRI on 07/02/18 showed a multifocal subacute nonhemorrhagic infarct of the PASHA territories bilaterally. An echocardiogram on 07/02/18 showed mild concentric LVH, EF 60% to 65%, no aortic stenosis, no mitral regurg, no tricuspid regurg, and no patent foramen ovale. HOSPITAL COURSE BY PROBLEM: 1. Subacute CVA. Ms. Villarreal presented to the emergency department with left lower extremity weakness approximately 5 days after she first noticed the symptoms. Unfortunately, she was outside the window for tPA or clot retrieval and CTA demonstrated no large vessel occlusion. Therefore, she was admitted to the floor, placed on telemetry, and her workup was unremarkable. Her echo was unrevealing and she had no arrhythmias on telemetry. She was evaluated by Dr. Schultz in the emergency department who recommended dual-antiplatelet therapy for 30 days, after which she should be continued on aspirin only. She was working with Physical Therapy and her strength was improving at the time of discharge. She was accepted to [facility] for ongoing rehab. She was also started on a statin. 2. Incidental finding of a lung nodule. She has a 1.7 cm nodule in the apex that was incidentally found on her CTA. I have discussed her case with Dr. Arguelles who agrees to see her in outpatient, though her nodule may need to be biopsied by Interventional Radiology. I will also discuss the case with Dr. Baker and please be sure to refer Tiffanie to him prior to her discharge from [facility]. 3. Hypertension. She was continued on her home dose of Cardizem. 4. Tobacco use. She was strongly encouraged to quit smoking given this finding of a CVA. She was continued on a nicotine patch and should be continued at the time of discharge if she is still motivated to quit. CONDITION AT THE TIME OF DISCHARGE: Stable. DISPOSITION: She is transferred to [facility]. TIME SPENT: Thirty minutes was spent on this discharge. [id number]/[facility] #: [id number] ENRIQUE
== END 2018-07-04 14:15 | DRG 45 ==
LOC: ED 08:45 → MEDTELE 11:14 → OBSVTOIN 12:00
PROVIDERS: ADMIT Internal Medicine; ATTEND Internal Medicine
DX: I63.89 Other cerebral infarction (principal); I67.2 Cerebral atherosclerosis; G83.11 Monoplegia of lower limb affecting right dominant side; I10 Essential (primary) hypertension; R91.1 Solitary pulmonary nodule; F17.210 Nicotine dependence, cigarettes, uncomplicated; E78.00 Pure hypercholesterolemia, unspecified; Z79.1 Long term (current) use of non-steroidal anti-inflammatories (NSAID); Z79.810 Long term (current) use of selective estrogen receptor modulators (SERMs); Z88.2 Allergy status to sulfonamides
CPT/HCPCS: 36415; 70450; 70496; 70498; 70551; 71046; 80053; 80061; 80307; 80320; 81003; 81015; 82607; 82746; 83090; 83605; 84439; 84484; 85025; 85610; 86038; 86850; 86900; 86901; 87077; 87086; 93005; 93306; 99283; A9270-GY; G0480; G8978-GP-CK; G8979-GP-CI; G8987-GO-CJ; G8988-GO-CH; J0360; J1644; Q9967

== ENCOUNTER 2018-07-04 09:53 | Inpatient (IN) | payer OTHER ==
[2018-07-04] MEDS ORDERED: Acetaminophen TAB* 325 MG PO PRN (16:06)
[2018-07-04] MEDS: Atorvastatin* 40 MG TAB PO SCH (17:26)
--- NOTE | 2018-07-04 20:42 | HP ---
HISTORY AND PHYSICAL: DATE OF ADMISSION: 07/04/18 REASON FOR ADMISSION: Stroke with right leg weakness. HISTORY OF PRESENT ILLNESS: Tiffanie Villarreal is a 62-year-old female. According to the patient, she had a little in the way of past medical history. She did have a history of hypertension. On 06/27/18, the patient said she noticed trouble with her balance. She thought she might be having vertigo. She was still able to ambulate, but felt like her balance was off. She kept going. Monday, she drove to [employer] in [place]. On the way home, her grandson was wondering why her driving was off. Apparently, the patient was having trouble pressing the gas pedal with her right foot. Monday morning, her son came over and felt that something was wrong. He wanted her to go to the hospital, but the patient did not. On Monday, the patient was finally convinced to go to the hospital. The patient was brought into the emergency room and a CAT scan of her brain was done showing a subacute infarct in the posterior left anterior cerebral artery distribution. She then had an MRI of the brain that showed multifocal subacute infarcts bilaterally in the PASHA territory. The patient was admitted for further workup. She was started on the baby aspirin daily and then Plavix was added. She also was started on Lipitor. The patient was seen by Neurology. She was obviously outside the window for TPA. She as mentioned had been started on Lipitor as well as aspirin and Plavix. She was advised not to smoke. She otherwise was stable. She was felt to have physical therapy and occupational therapy needs. She is now being admitted for inpatient rehab so she might return to independent living. PAST MEDICAL HISTORY: Significant for the aforementioned hypertension. Apparently, she also had hypercholesterolemia, but was on no medications. MEDICATIONS: Current medications include: 1. Diltiazem. 2. She is on Lipitor. 3. Aspirin. 4. Plavix. 5. Nicotine patch. 6. Heparin for DVT prophylaxis. ALLERGIES: To [facility] drugs. SOCIAL HISTORY: The patient lives with 2 of her grandsons in a 3 story house. She has a 17-year-old grandson living with her and a 20-year-old grandson. She was a smoker and did not drink alcohol. She is retired. She is a . She has several children living in the area. REVIEW OF SYSTEMS: The patient reports no current shortness of breath or chest pain. PHYSICAL EXAMINATION VITAL SIGNS: The patient's temperature is 97.9, blood pressure is 137/69, pulse 92, respirations 16. HEENT: Extraocular movements are intact. Tongue is midline. NECK: Supple. LUNGS: Sound clear to auscultation bilaterally. HEART: Sounds were regular. S1 and S2 were audible. ABDOMEN: Soft and nontender. EXTREMITIES: Show fairly normal muscle bulk and tone. Peripheral pulses are intact. NEUROLOGIC: She is awake, alert, and oriented. She is able to move her upper extremities with 5/5 strength. Her left lower extremity, she can move with 5/5 strength. Right lower extremity moves with about 4/5 strength. She has 3/5 dorsiflexion and 3/5 plantar flexion. FUNCTIONAL EXAM: The patient transfers with supervision. She is able to ambulate with contact guard. ASSESSMENT: 1. Left anterior cerebrovascular accident with right leg weakness. 2. Bilateral cerebrovascular accidents. PLAN/RECOMMENDATIONS: We are going to integrate her into comprehensive and therapeutic rehab program with the following goals: 1. Physical Therapy will see the patient. They are going to work on functional transfer training, ambulation training with a walker. 2. Occupational Therapy will see the patient and work on her activities of daily living including toileting and toilet transfers. 3. Heparin for DVT prophylaxis. 4. Dual antiplatelet therapy, aspirin and Plavix for 30 days, then baby aspirin alone. 5. Continue Lipitor for hyperlipidemia. 6. Continue nicotine patch for smoking cessation. 7. Advanced directives: The patient is a full code. 8. Customer Project Manager to be closely involved to make sure that any services and equipment the patient requires are in place prior to discharge. 9. She did have a lung nodule on her chest x-ray, which will need to be followed up by Dr. Arguelles. 10. Home with appropriate services. ESTIMATED LENGTH OF STAY: 7 to 10 days. [id number]/[facility] #: [id number] MTDD
[2018-07-04] MEDS: Docusate CAP* 100 MG PO SCH (20:59)
[2018-07-04] MEDS: Nicotine Patch Removal NOTE FOLLOW UP SCH (21:02)
[2018-07-04] MEDS: Heparin VIAL(*) 5000 UNITS/ML VIAL (FIVE THOUSAND) SUBCUT SCH (21:06)
[2018-07-05] MEDS: Heparin VIAL(*) 5000 UNITS/ML VIAL (FIVE THOUSAND) SUBCUT SCH ×2 (05:16→15:14)
[2018-07-05] MEDS: Nicotine PATCH 14 MG/24 HR* PATCH TRANSDERM SCH (09:29)
[2018-07-05] MEDS: Aspirin EC TAB* 81 MG TAB.EC PO SCH (09:30)
[2018-07-05] MEDS: Diltiazem CD CAP* 180 MG PO SCH (09:30)
[2018-07-05] MEDS: Clopidogrel TAB* 75 MG PO SCH (09:30)
[2018-07-05] MEDS: Docusate CAP* 100 MG PO SCH ×2 (09:30→21:25)
[2018-07-05] MEDS: Atorvastatin* 40 MG TAB PO SCH (17:32)
[2018-07-05] MEDS: Nicotine Patch Removal NOTE FOLLOW UP SCH (21:26)
--- NOTE | 2018-07-05 21:33 | PN ---
Progress Note Date of Service: 07/05/18 Note: VIRGIL BLEVINS was visited. Therapy notes read and reviewed. She is walking fairly well. She may need an AFO; will discuss with therapy team. Current Medications: Active Medications Generic Name Dose Route Start Last Admin Trade Name Freq PRN Reason Stop Dose Admin Acetaminophen 650 mg 07/04/18 16:06 Tylenol Tab* PO Q6H PRN FEVER/PAIN Aspirin 81 mg 07/05/18 09:00 07/05/18 09:30 Aspirin Ec Tab* PO 81 mg DAILY [facility] Administration Atorvastatin Calcium 40 mg 07/04/18 17:00 07/05/18 17:32 Lipitor* PO 40 mg 1700 [facility] Administration Clopidogrel Bisulfate 75 mg 07/05/18 09:00 07/05/18 09:30 Plavix Tab* PO 75 mg DAILY [facility] Administration Diltiazem HCl 180 mg 07/05/18 09:00 07/05/18 09:30 Cardizem Cd Cap* PO 180 mg DAILY [facility] Administration Docusate Sodium 100 mg 07/04/18 21:00 07/05/18 21:25 Colace Cap* PO 100 mg BID [facility]IK[facility] Administration Heparin Sodium (Porcine) 5,000 units 07/06/18 09:00 Heparin Vial(*) SUBCUT Q12H [facility] Nicotine 1 patch 07/05/18 08:00 07/05/18 09:29 Nicotine Patch 14 Mg/24 Hr* TRANSDERM 1 patch 0800 [facility] Administration Pharmacy Profile Note 1 note 07/04/18 21:00 07/05/18 21:26 Nicotine Patch Removal Note* FOLLOW UP 1 note 2100 [facility] Administration Senna 2 tab 07/04/18 16:06 Senokot Tab* PO BEDTIME PRN CONSTIPATION Vital Signs: Vital Signs Temp Pulse Resp BP Pulse Ox 98.1 F 84 18 165/80 97 07/05/18 16:18 07/05/18 16:18 07/05/18 16:18 07/05/18 16:18 07/05/18 16:18 Exam: HEENT: EOMI LUNGS: Clear HEART: Reg rhythm ABDOMEN: Ecchymoses from SQ heparin EXTREMITIES: Normal tone NEUROLOGIC: Right leg weakness especially plantarflexion and dorsiflexion. Sensation intact Assessment/Plan: 1. Left PASHA CVA: PT/OT. DAPT with Plavix/ASA for 30 days, then ASA alone 2. HTN: Cardizem CD 3. Nicotine Addiction: Nicotine patch 4. DVT Prophylaxis: Heparin SQ 5. Advanced Directives: Full Code 07/05/18 21:31 07/05/18 21:31
[2018-07-06 05:59] LABS: ABS Basophils 0.1 10^3/ul (0-0.2); ABS Eosinophils 0.3 10^3/ul (0-0.6); ABS Lymphocytes 2.7 10^3/ul (1.0-4.8); ABS Monocytes 0.9 10^3/ul (0-0.8); ABS Neutrophils 5.8 10^3/ul (1.5-7.7); ABS Nucleated RBC 0 10^3/ul; Eosinophil % 2.6 %; Hematocrit 42 % (33-41); Hemoglobin 14.3 g/dL (12.0-16.0); Lymphocyte % 27.6 %; Mean Corpuscular HGB Conc 34 g/dL (31-36); Mean Corpuscular Hemoglobin 30 pg (27-31); Mean Corpuscular Volume 89 fL (80-97); Mean Platelet Volume 8.4 fL (7.4-10.4); Nucleated Red Blood Cells % 0.1; Platelet Count 293 10^3/uL (150-450); Red Blood Count 4.76 10^6 /uL (3.70-4.87); Red Cell Distribution Width 14 % (10.5-15); White Blood Count 9.7 10^3/uL (3.5-10.8)
[2018-07-06 06:17] LABS: Albumin 4.2 g/dL (3.2-5.2); Albumin/Globulin Ratio 1.6 (1-3); BUN/Creatinine Ratio 31.7 (8-20); Calcium 9.5 mg/dL (8.6-10.3); EGFR African American 122.6 (>60); EGFR Non-African American 101.3 (>60); Globulin 2.7 g/dL (2-4); Potassium 3.7 mmol/L (3.5-5.0); Total Bilirubin 0.4 mg/dL (0.2-1.0); Total Protein 6.9 g/dL (6.4-8.9)
[2018-07-06] MEDS: Clopidogrel TAB* 75 MG PO SCH (08:44)
[2018-07-06] MEDS: Docusate CAP* 100 MG PO SCH ×2 (08:44→20:23)
[2018-07-06] MEDS: Aspirin EC TAB* 81 MG TAB.EC PO SCH (08:44)
[2018-07-06] MEDS: Heparin VIAL(*) 5000 UNITS/ML VIAL (FIVE THOUSAND) SUBCUT SCH ×2 (08:44→20:25)
[2018-07-06] MEDS: Diltiazem CD CAP* 180 MG PO SCH (08:44)
[2018-07-06] MEDS: Nicotine PATCH 14 MG/24 HR* PATCH TRANSDERM SCH (08:46)
--- NOTE | 2018-07-06 12:48 | PMRUTEAM ---
PMRU: Team Meeting Current Status: Nursing: Current Status Skin Deviations [Upper Back] Other Skin Deviation Description [ - Upper Back] Physical Therapy: Current Status Bed Mobility Assistance Independent Transfer Mobility Assistance Contact Guard Assist Transfer/Bed Mobility Rolling Walker Recommended Devices Ambulation Assistance Contact Guard Assist Ambulation Assistive Devices Rolling Walker Number of Feet Patient 150 Ambulated Stairs Assistance Not Tested Occupational Therapy: Current Status Upper Body Dressing Independent Lower Body Dressing Contact Guard Assist Bathing Supervision Toileting Contact Guard Toilet Transfer Contact Guard Assist Shower Transfer Contact Guard Assist Eating Independent Rec Therapy: Current Status Summary of Assessment and Pt. was open to conversation - identified with Clinical Impression numerous interests and involvement in them prior to admission. Pt. states she is recently retired and looking forward to engaging in leisure more frequently and trying new activities such as yoga. Pt. was open to continued leisure visits. Treatment Goals Pt. will engage in leisure activities while on the unit. Treatment Plan Provide recreation therapy and encourage involvement. Social Work: Current Status Discharge Plan return home with continued therapy and family support Potential for Family Training pt's daughter is involved and attentive Anticipated Discharge Home Destination Discharge With family support and continued therapy Goals: Physical Therapy: Initial Goals Bed Mobility Assistance Independent Transfer Mobility Assistance Independent Transfer/Bed Mobility Rolling Walker Recommended Devices Ambulation Independent Ambulation Recommended Devices Rolling Walker Ambulation Distance 150 Stairs Assistance Independent Stair Recommended Devices Two Rails Number of Stairs 13 Physical Therapy: Updated Goals Transfer/Bed Mobility Rolling Walker Recommended Devices Occupational Therapy: Initial Goals Goals to be Completed in (Days 5-7 ) Upper Body Bathing Routine Supervision/Set Up Lower Body Bathing Routine Supervision/Set Up,Minimal Contact Assist Upper Body Dressing Routine Supervision/Set Up Lower Body Dressing Routine Modified Independent with Toilet Hygeine and Clothing Modified Independent with Management Routine Toilet Transfer Routine Minimal Contact Assist Tub Transfer Routine Modified Independent with Functional Transfers for ADL Modified Independent with Grooming Routine Supervision/Set Up Feeding Routine Independent Light Housekeeping Tasks Modified Independent with Light Housekeeping Tasks for light meal prep Assistive Devices Social Work: Goals Discharge Plan return home with continued therapy and family support Potential for Family Training pt's daughter is involved and attentive Anticipated Discharge Home Destination Discharge With family support and continued therapy Care Plan: Care Plan ADL's - Improve/Maintain Start: 07/04/18 18:22 Freq: DAILY Status: Active Target: Protocol: Activity Type Activity Date Activity User E-Sign Co-Sign Detail Recorded Client Recorded Date Recorded By Document 07/06/18 12:00 [id number] 07/06/18 12:00 [id number] 07/06/18 12:00 PMRU Outcome: ADL's/ADL Transfers Orders/Interventions Occupational Therapy Evaluation & Treatment Communication Tool in Patient Room Device Yes Address Deficits Secondary To: CVA Patient to receive OT 5x/wk for 60-120 Therex min/day Self Care Management Group Therapy Neuromuscular ReEducation UE/LE ADL's with Assist Yes: Farida ADL Transfers with Assist Yes: Farida Toileting: Transfers,Clothing Management Yes: Farida ,Hygeine w/Assist Light Kitchen/Laundry w/Assist Yes: Farida light meal prep Progression Toward Outcome/Goals Progressing Outcome/Goals Met Pt taking shorter rest breaks during UE stregthening exercises. Cardiovascular- Improve/Maintain Start: 07/04/18 18:22 Freq: QSHIFT Status: Active Target: Protocol: Activity Type Activity Date Activity User E-Sign Co-Sign Detail Recorded Client Recorded Date Recorded By Document 07/05/18 20:00 [id number] [email or web address] 07/05/18 22:24 [id number] 07/05/18 20:00 PMRU Outcome: Cardiovascular Vital Signs q Shift for 48hrs Then BID Yes Daily Weight Ordered No Current Cardiovascular Outcome/Goal Maintain/ Achieve Baseline HR, BP , Perfusion Improve HR Within Prescribed Parameters Progression Toward Outcome/Goal Progressing DVT Prophylaxis- Improve/Maintain Start: 07/04/18 18:22 Freq: QSHIFT Status: Active Target: Protocol: Activity Type Activity Date Activity User E-Sign Co-Sign Detail Recorded Client Recorded Date Recorded By Document 07/05/18 20:00 [id number] 07/05/18 22:24 [id number] 07/05/18 20:00 PMRU Outcome: DVT Prophylaxis Outcome/Goals Remains Free of DVT TEDS Stockings on Every AM, Off at HS Progression Toward Outcome/Goals Progressing Discharge Planning - Improve/Maintain Start: 07/04/18 18:22 Freq: DAILY Status: Active Target: Protocol: Activity Type Activity Date Activity User E-Sign Co-Sign Detail Recorded Client Recorded Date Recorded By Document 07/06/18 01:00 [id number] [email or web address] 07/06/18 01:02 [id number] 07/06/18 01:00 PMRU Outcome: Discharge Planning Update Patient Family No Outcome/Goals Demonstrates Understanding of Discharge Plan Progression Toward Outcome/Goals Progressing Safety- Improve/Maintain Start: 07/04/18 18:22 Freq: QSHIFT Status: Active Target: Protocol: Activity Type Activity Date Activity User E-Sign Co-Sign Detail Recorded Client Recorded Date Recorded By Document 07/05/18 20:00 [id number] [email or web address] 07/05/18 22:24 [id number] 07/05/18 20:00 PMRU Outcome: Safety Outcome/Goals Remain Free of Injury or Harm Cooperates with Safety Measures for Least Restrictive Environment Progression Toward Outcome/Goals Progressing Outcome/Goals Met Comment SHUN armed Medicine Note: Length of Stay: 6 days Anticipated Discharge Destination: Home Tentative Discharge Date: July 12, 2018 Discharged to: Home
--- NOTE | 2018-07-06 17:06 | PN ---
Progress Note Date of Service: 07/06/18 Note: VIRGIL BLEVINS was visited. Therapy notes read and reviewed. She was discussed in interdisciplinary plan of care rounds. She is doing okay but AFO question is unresolved at this time. Current Medications: Active Medications Generic Name Dose Route Start Last Admin Trade Name Freq PRN Reason Stop Dose Admin Acetaminophen 650 mg 07/04/18 16:06 Tylenol Tab* PO Q6H PRN FEVER/PAIN Aspirin 81 mg 07/05/18 09:00 07/06/18 08:44 Aspirin Ec Tab* PO 81 mg DAILY DANIKA Administration Atorvastatin Calcium 40 mg 07/04/18 17:00 07/05/18 17:32 Lipitor* PO 40 mg 1700 DANIKA Administration Clopidogrel Bisulfate 75 mg 07/05/18 09:00 07/06/18 08:44 Plavix Tab* PO 75 mg DAILY DANIKA Administration Diltiazem HCl 180 mg 07/05/18 09:00 07/06/18 08:44 Cardizem Cd Cap* PO 180 mg DAILY DANIKA Administration Docusate Sodium 100 mg 07/04/18 21:00 07/06/18 08:44 Colace Cap* PO 100 mg BID DANIKA Administration Heparin Sodium (Porcine) 5,000 units 07/06/18 09:00 07/06/18 08:44 Heparin Vial(*) SUBCUT 5,000 units Q12H DANIKA Administration Nicotine 1 patch 07/05/18 08:00 07/06/18 08:46 Nicotine Patch 14 Mg/24 Hr* TRANSDERM 1 patch 0800 DANIKA Administration Pharmacy Profile Note 1 note 07/04/18 21:00 07/05/18 21:26 Nicotine Patch Removal Note* FOLLOW UP 1 note 2100 DANIKA Administration Senna 2 tab 07/04/18 16:06 Senokot Tab* PO BEDTIME PRN CONSTIPATION Vital Signs: Vital Signs Temp Pulse Resp BP Pulse Ox 98.2 F 68 16 130/64 98 07/06/18 05:11 07/06/18 05:11 07/06/18 05:11 07/06/18 05:11 07/06/18 05:11 Lab Results: Laboratory Results - last 24 hr 07/06/18 07/06/18 05:37 05:37 WBC 9.7 RBC 4.76 Hgb 14.3 Hct 42 H MCV 89 MCH 30 MCHC 34 RDW 14 Plt Count 293 MPV 8.4 Neut % (Auto) 59.9 Lymph % (Auto) 27.6 Meade % (Auto) 9.4 Eos % (Auto) 2.6 Baso % (Auto) 0.5 Absolute Neuts (auto) 5.8 Absolute Lymphs (auto) 2.7 Absolute Monos (auto) 0.9 H Absolute Eos (auto) 0.3 Absolute Basos (auto) 0.1 Absolute Nucleated RBC 0 Nucleated RBC % 0.1 Sodium 140 Potassium 3.7 Chloride 107 Carbon Dioxide 25 Anion Gap 8 BUN 19 Creatinine 0.60 Est GFR ( Amer) 122.6 Est GFR (Non-Af Amer) 101.3 BUN/Creatinine Ratio 31.7 H Glucose 107 H Calcium 9.5 Total Bilirubin 0.40 AST 74 H ALT 84 H Alkaline Phosphatase 104 Total Protein 6.9 Albumin 4.2 Globulin 2.7 Albumin/Globulin Ratio 1.6 Exam: HEENT: EOMI LUNGS: Clear HEART: Reg rhythm ABDOMEN: Ecchymoses from SQ heparin EXTREMITIES: Normal tone NEUROLOGIC: Right leg weakness especially plantarflexion and dorsiflexion. Sensation intact Assessment/Plan: 1. Left PASHA CVA: PT/OT. DAPT with Plavix/ASA for 30 days, then ASA alone 2. HTN: Cardizem CD 3. Nicotine Addiction: Nicotine patch 4. DVT Prophylaxis: Heparin SQ 5. Advanced Directives: Full Code 07/06/18 17:06
[2018-07-06] MEDS: Atorvastatin* 40 MG TAB PO SCH (18:18)
[2018-07-06] MEDS: Senna TAB PO PRN (20:23)
[2018-07-06] MEDS: Nicotine Patch Removal NOTE FOLLOW UP SCH (21:30)
[2018-07-07] MEDS: Docusate CAP* 100 MG PO SCH ×2 (07:51→22:03)
[2018-07-07] MEDS: Clopidogrel TAB* 75 MG PO SCH (07:51)
[2018-07-07] MEDS: Aspirin EC TAB* 81 MG TAB.EC PO SCH (07:51)
[2018-07-07] MEDS: Diltiazem CD CAP* 180 MG PO SCH (07:51)
[2018-07-07] MEDS: Nicotine PATCH 14 MG/24 HR* PATCH TRANSDERM SCH (07:52)
[2018-07-07] MEDS: Heparin VIAL(*) 5000 UNITS/ML VIAL (FIVE THOUSAND) SUBCUT SCH ×2 (07:54→22:03)
--- NOTE | 2018-07-07 12:19 | PN ---
Progress Note Date of Service: 07/07/18 Note: VIRGIL BLEVINS was visited. Therapy notes read and reviewed. She has no complaints this am and feels good overall. Current Medications: Active Medications Generic Name Dose Route Start Last Admin Trade Name Freq PRN Reason Stop Dose Admin Acetaminophen 650 mg 07/04/18 16:06 Tylenol Tab* PO Q6H PRN FEVER/PAIN Aspirin 81 mg 07/05/18 09:00 07/07/18 07:51 Aspirin Ec Tab* PO 81 mg DAILY DANIKA Administration Atorvastatin Calcium 40 mg 07/04/18 17:00 07/06/18 18:18 Lipitor* PO 40 mg 1700 DANIKA Administration Clopidogrel Bisulfate 75 mg 07/05/18 09:00 07/07/18 07:51 Plavix Tab* PO 75 mg DAILY DANIKA Administration Diltiazem HCl 180 mg 07/05/18 09:00 07/07/18 07:51 Cardizem Cd Cap* PO 180 mg DAILY DANIKA Administration Docusate Sodium 100 mg 07/04/18 21:00 07/07/18 07:51 Colace Cap* PO 100 mg BID DANIKA Administration Heparin Sodium (Porcine) 5,000 units 07/06/18 09:00 07/07/18 07:54 Heparin Vial(*) SUBCUT 5,000 units Q12H DANIKA Administration Nicotine 1 patch 07/05/18 08:00 07/07/18 07:52 Nicotine Patch 14 Mg/24 Hr* TRANSDERM 1 patch 0800 DANIKA Administration Pharmacy Profile Note 1 note 07/04/18 21:00 07/06/18 21:30 Nicotine Patch Removal Note* FOLLOW UP 1 note 2100 DANIKA Administration Senna 2 tab 07/04/18 16:06 07/06/18 20:23 Senokot Tab* PO 2 tab BEDTIME PRN Administration CONSTIPATION Vital Signs: Vital Signs Temp Pulse Resp BP Pulse Ox 97.9 F 75 16 124/66 97 07/07/18 05:13 07/07/18 05:13 07/07/18 05:13 07/07/18 05:13 07/07/18 05:13 Exam: HEENT: EOMI LUNGS: Clear HEART: Reg rhythm ABDOMEN: Ecchymoses from SQ heparin EXTREMITIES: Normal tone NEUROLOGIC: Right leg weakness especially plantarflexion and dorsiflexion. Sensation intact Assessment/Plan: 1. Left PASHA CVA: PT/OT. DAPT with Plavix/ASA for 30 days, then ASA alone 2. HTN: Cardizem CD 3. Nicotine Addiction: Nicotine patch 4. DVT Prophylaxis: Heparin SQ 5. Advanced Directives: Full Code 07/07/18 12:19
[2018-07-07] MEDS: Atorvastatin* 40 MG TAB PO SCH (16:59)
[2018-07-07] MEDS: Senna TAB PO PRN (22:03)
[2018-07-07] MEDS: Nicotine Patch Removal NOTE FOLLOW UP SCH (22:27)
[2018-07-08] MEDS: Diltiazem CD CAP* 180 MG PO SCH (08:40)
[2018-07-08] MEDS: Clopidogrel TAB* 75 MG PO SCH (08:40)
[2018-07-08] MEDS: Docusate CAP* 100 MG PO SCH ×2 (08:40→21:36)
[2018-07-08] MEDS: Aspirin EC TAB* 81 MG TAB.EC PO SCH (08:40)
[2018-07-08] MEDS: Nicotine PATCH 14 MG/24 HR* PATCH TRANSDERM SCH (08:41)
[2018-07-08] MEDS: Heparin VIAL(*) 5000 UNITS/ML VIAL (FIVE THOUSAND) SUBCUT SCH ×2 (08:41→21:42)
--- NOTE | 2018-07-08 16:43 | PN ---
Progress Note Date of Service: 07/08/18 Note: VIRGIL BLEVINS was visited. Nursing notes read and reviewed. She has no complaints. Right leg moving better. Current Medications: Active Medications Generic Name Dose Route Start Last Admin Trade Name Freq PRN Reason Stop Dose Admin Acetaminophen 650 mg 07/04/18 16:06 Tylenol Tab* PO Q6H PRN FEVER/PAIN Aspirin 81 mg 07/05/18 09:00 07/08/18 08:40 Aspirin Ec Tab* PO 81 mg DAILY DANIKA Administration Atorvastatin Calcium 40 mg 07/04/18 17:00 07/07/18 16:59 Lipitor* PO 40 mg 1700 DANIKA Administration Clopidogrel Bisulfate 75 mg 07/05/18 09:00 07/08/18 08:40 Plavix Tab* PO 75 mg DAILY DANIKA Administration Diltiazem HCl 180 mg 07/05/18 09:00 07/08/18 08:40 Cardizem Cd Cap* PO 180 mg DAILY DANIKA Administration Docusate Sodium 100 mg 07/04/18 21:00 07/08/18 08:40 Colace Cap* PO 100 mg BID DANIKA Administration Heparin Sodium (Porcine) 5,000 units 07/06/18 09:00 07/08/18 08:41 Heparin Vial(*) SUBCUT 5,000 units Q12H DANIKA Administration Nicotine 1 patch 07/05/18 08:00 07/08/18 08:41 Nicotine Patch 14 Mg/24 Hr* TRANSDERM 1 patch 0800 DANIKA Administration Pharmacy Profile Note 1 note 07/04/18 21:00 07/07/18 22:27 Nicotine Patch Removal Note* FOLLOW UP 1 note 2100 DANIKA Administration Senna 2 tab 07/04/18 16:06 07/07/18 22:03 Senokot Tab* PO 2 tab BEDTIME PRN Administration CONSTIPATION Vital Signs: Vital Signs Temp Pulse Resp BP Pulse Ox 98.1 F 80 18 170/71 98 07/08/18 15:47 07/08/18 15:47 07/08/18 06:32 07/08/18 15:47 07/08/18 15:47 Exam: HEENT: EOMI LUNGS: Clear HEART: Reg rhythm ABDOMEN: Ecchymoses from SQ heparin EXTREMITIES: Normal tone NEUROLOGIC: Right leg weakness especially plantarflexion and dorsiflexion. Sensation intact Assessment/Plan: 1. Left PASHA CVA: PT/OT. DAPT with Plavix/ASA for 30 days, then ASA alone 2. HTN: Cardizem CD 3. Nicotine Addiction: Nicotine patch 4. DVT Prophylaxis: Heparin SQ 5. Advanced Directives: Full Code 07/08/18 16:44
[2018-07-08] MEDS: Atorvastatin* 40 MG TAB PO SCH (16:46)
[2018-07-08] MEDS: Senna TAB PO PRN (21:37)
[2018-07-08] MEDS: Nicotine Patch Removal NOTE FOLLOW UP SCH (21:41)
[2018-07-09] MEDS: Nicotine PATCH 14 MG/24 HR* PATCH TRANSDERM SCH (09:52)
[2018-07-09] MEDS: Docusate CAP* 100 MG PO SCH ×2 (09:53→20:18)
[2018-07-09] MEDS: Aspirin EC TAB* 81 MG TAB.EC PO SCH (09:53)
[2018-07-09] MEDS: Heparin VIAL(*) 5000 UNITS/ML VIAL (FIVE THOUSAND) SUBCUT SCH ×2 (09:53→20:18)
[2018-07-09] MEDS: Diltiazem CD CAP* 180 MG PO SCH (09:53)
[2018-07-09] MEDS: Clopidogrel TAB* 75 MG PO SCH (09:53)
[2018-07-09] MEDS: Atorvastatin* 40 MG TAB PO SCH (17:38)
--- NOTE | 2018-07-09 18:33 | PN ---
Progress Note Date of Service: 07/09/18 Note: VIRGIL BLEVINS was visited. Therapy notes read and reviewed. She has no complaints. Her BP was a little high last night but better now. Current Medications: Active Medications Generic Name Dose Route Start Last Admin Trade Name Freq PRN Reason Stop Dose Admin Acetaminophen 650 mg 07/04/18 16:06 Tylenol Tab* PO Q6H PRN FEVER/PAIN Aspirin 81 mg 07/05/18 09:00 07/09/18 09:53 Aspirin Ec Tab* PO 81 mg DAILY DANIKA Administration Atorvastatin Calcium 40 mg 07/04/18 17:00 07/09/18 17:38 Lipitor* PO 40 mg 1700 DANIKA Administration Clopidogrel Bisulfate 75 mg 07/05/18 09:00 07/09/18 09:53 Plavix Tab* PO 75 mg DAILY DANIKA Administration Diltiazem HCl 180 mg 07/05/18 09:00 07/09/18 09:53 Cardizem Cd Cap* PO 180 mg DAILY DANIKA Administration Docusate Sodium 100 mg 07/04/18 21:00 07/09/18 09:53 Colace Cap* PO 100 mg BID DANIKA Administration Heparin Sodium (Porcine) 5,000 units 07/06/18 09:00 07/09/18 09:53 Heparin Vial(*) SUBCUT 5,000 units Q12H DANIKA Administration Nicotine 1 patch 07/05/18 08:00 07/09/18 09:52 Nicotine Patch 14 Mg/24 Hr* TRANSDERM 1 patch 0800 DANIKA Administration Pharmacy Profile Note 1 note 07/04/18 21:00 07/08/18 21:41 Nicotine Patch Removal Note* FOLLOW UP 1 note 2100 DANIKA Administration Senna 2 tab 07/04/18 16:06 07/08/18 21:37 Senokot Tab* PO 2 tab BEDTIME PRN Administration CONSTIPATION Vital Signs: Vital Signs Temp Pulse Resp BP Pulse Ox 97.7 F 80 16 144/68 98 07/09/18 05:30 07/09/18 05:30 07/09/18 05:30 07/09/18 05:30 07/09/18 05:30 Exam: HEENT: EOMI LUNGS: Clear HEART: Reg rhythm ABDOMEN: Ecchymoses from SQ heparin EXTREMITIES: Normal tone NEUROLOGIC: Right plantarflexion and dorsiflexion tests well PF4+/5, DF 5/5. Sensation intact Assessment/Plan: 1. Left PASHA CVA: PT/OT. DAPT with Plavix/ASA for 30 days, then ASA alone. May need AFO 2. HTN: Cardizem CD 3. Nicotine Addiction: Nicotine patch 4. DVT Prophylaxis: Heparin SQ 5. Advanced Directives: Full Code 07/09/18 18:34
[2018-07-09] MEDS: Nicotine Patch Removal NOTE FOLLOW UP SCH (20:18)
[2018-07-10] MEDS: Nicotine PATCH 14 MG/24 HR* PATCH TRANSDERM SCH (09:47)
[2018-07-10] MEDS: Aspirin EC TAB* 81 MG TAB.EC PO SCH (09:48)
[2018-07-10] MEDS: Docusate CAP* 100 MG PO SCH ×2 (09:48→20:02)
[2018-07-10] MEDS: Diltiazem CD CAP* 180 MG PO SCH (09:48)
[2018-07-10] MEDS: Clopidogrel TAB* 75 MG PO SCH (09:48)
[2018-07-10] MEDS: Heparin VIAL(*) 5000 UNITS/ML VIAL (FIVE THOUSAND) SUBCUT SCH ×2 (09:50→20:02)
--- NOTE | 2018-07-10 12:25 | PMRUTEAM ---
PMRU: Team Meeting Current Status: Nursing: Current Status Skin Deviations [Upper Back] Other Skin Deviation Description [ - Upper Back] Physical Therapy: Current Status Bed Mobility Assistance Independent Transfer Mobility Assistance Supervision Transfer/Bed Mobility Rolling Walker Recommended Devices Ambulation Assistance Supervision,Contact Guard Assist Ambulation Assistive Devices Rolling Walker Number of Feet Patient 170 Ambulated Stairs Assistance Supervision Stairs Recommended Devices Two Rails Number of Stairs 12 Curb Not Tested Objective Comments step through pattern ascend/descending stairs, poor eccentric control when stepping down with LLE first Occupational Therapy: Current Status Upper Body Dressing Independent Lower Body Dressing Supervision Lower Body Dressing Progress verbal cues for safe use of walker Bathing Supervision Toileting Independent Toilet Transfer Supervision Shower Transfer Contact Guard Assist Eating Independent Rec Therapy: Current Status Summary of Assessment and Recreation Therapy assessment complete and pt. is Clinical Impression aware of services. Pt. has been engaged in leisure visits but has declined formal activities. Treatment Goals Pt. will engage in leisure activities while on the unit. Treatment Plan Provide recreation therapy services and encourage involvement. Social Work: Current Status Discharge Plan return home with home care svs and family support Potential for Family Training pt's family are involved and supportive Anticipated Discharge Home Destination Discharge With out patient therapy and family support Goals: Physical Therapy: Initial Goals Bed Mobility Assistance Independent Transfer Mobility Assistance Independent Transfer/Bed Mobility Rolling Walker Recommended Devices Ambulation Independent Ambulation Recommended Devices Rolling Walker Ambulation Distance 150 Stairs Assistance Independent Stair Recommended Devices Two Rails Number of Stairs 13 Physical Therapy: Updated Goals Transfer/Bed Mobility Rolling Walker Recommended Devices Occupational Therapy: Initial Goals Goals to be Completed in (Days 5-7 ) Upper Body Bathing Routine Supervision/Set Up Lower Body Bathing Routine Supervision/Set Up,Minimal Contact Assist Upper Body Dressing Routine Supervision/Set Up Lower Body Dressing Routine Modified Independent with Toilet Hygeine and Clothing Supervision/Set Up,Minimal Contact Assist Management Routine Toilet Transfer Routine Minimal Contact Assist Tub Transfer Routine Modified Independent with Functional Transfers for ADL Modified Independent with Grooming Routine Supervision/Set Up Feeding Routine Independent Light Housekeeping Tasks Modified Independent with Light Housekeeping Tasks for light meal prep Assistive Devices Nutrition: Goals Intervention Goals 1. Recommend heart healthy diet 2. Adequate PO intake to maintain lean body mass and hydration w/o undesired wt loss 3. Electrolytes will be maintained WNL 4. Maintain bowel regularity w/o constipation or diarrhea 5. Questions regarding statin/grapefruit education will be addressed prior to dc Social Work: Goals Discharge Plan return home with home care svs and family support Potential for Family Training pt's family are involved and supportive Anticipated Discharge Home Destination Discharge With out patient therapy and family support Care Plan: Care Plan ADL's - Improve/Maintain Start: 07/04/18 18:22 Freq: DAILY Status: Active Target: Protocol: Activity Type Activity Date Activity User E-Sign Co-Sign Detail Recorded Client Recorded Date Recorded By Document 07/06/18 12:00 [id number] 07/06/18 12:00 [id number] 07/06/18 12:00 PMRU Outcome: ADL's/ADL Transfers Orders/Interventions Occupational Therapy Evaluation & Treatment Communication Tool in Patient Room Device Yes Address Deficits Secondary To: CVA Patient to receive OT 5x/wk for 60-120 Therex min/day Self Care Management Group Therapy Neuromuscular ReEducation UE/LE ADL's with Assist Yes: Farida ADL Transfers with Assist Yes: Farida Toileting: Transfers,Clothing Management Yes: Farida ,Hygeine w/Assist Light Kitchen/Laundry w/Assist Yes: Farida light meal prep Progression Toward Outcome/Goals Progressing Outcome/Goals Met Pt taking shorter rest breaks during UE stregthening exercises. Cardiovascular- Improve/Maintain Start: 07/04/18 18:22 Freq: QSHIFT Status: Active Target: Protocol: Activity Type Activity Date Activity User E-Sign Co-Sign Detail Recorded Client Recorded Date Recorded By Document 07/09/18 20:00 [id number] 07/09/18 23:52 [id number] 07/09/18 20:00 PMRU Outcome: Cardiovascular Vital Signs q Shift for 48hrs Then BID Yes Daily Weight Ordered No Current Cardiovascular Outcome/Goal Maintain/ Achieve Baseline HR, BP , Perfusion Improve HR Within Prescribed Parameters Free of Abnormal Cardiac Symptoms Progression Toward Outcome/Goal Progressing DVT Prophylaxis- Improve/Maintain Start: 07/04/18 18:22 Freq: QSHIFT Status: Active Target: Protocol: Activity Type Activity Date Activity User E-Sign Co-Sign Detail Recorded Client Recorded Date Recorded By Document 07/09/18 20:00 [id number] 07/09/18 23:52 [id number] 07/09/18 20:00 PMRU Outcome: DVT Prophylaxis Outcome/Goals Remains Free of DVT Complies with DVT Prophylaxis /Treatment Demonstrates Knowledge of DVT Prevention/ Treatment TEDS Stockings on Every AM, Off at HS Progression Toward Outcome/Goals Progressing Discharge Planning - Improve/Maintain Start: 07/04/18 18:22 Freq: DAILY Status: Active Target: Protocol: Activity Type Activity Date Activity User E-Sign Co-Sign Detail Recorded Client Recorded Date Recorded By Document 07/10/18 02:00 [id number] 07/10/18 02:02 [id number] 07/10/18 02:00 PMRU Outcome: Discharge Planning Update Patient Family No Outcome/Goals Demonstrates Understanding of Discharge Plan Progression Toward Outcome/Goals Progressing Education-Improve/Maintain Start: 07/09/18 12:41 Freq: QSHIFT Status: Active Target: Protocol: Activity Type Activity Date Activity User E-Sign Co-Sign Detail Recorded Client Recorded Date Recorded By Document 07/09/18 20:00 [id number] [email or web address] 07/09/18 23:52 [id number] 07/09/18 20:00 PMRU Outcome: Education Outcome/Goals Demonstrates Skills Encourage Questions Progression Toward Outcome/Goals Progressing Medication Administration Start: 07/09/18 12:41 Freq: QSHIFT Status: Active Target: Protocol: Activity Type Activity Date Activity User E-Sign Co-Sign Detail Recorded Client Recorded Date Recorded By Document 07/09/18 20:00 [id number] 07/09/18 23:52 [id number] 07/09/18 20:00 PMRU Outcome: Medication Administration Assess Patient Knowledge/Teach Med Yes Education for all Meds Outcome/Goals Patient Independent with Medication Administration at Home Demonstrates Understanding Progression Towards Outcome/Goals Progressing Is Patient Going Home on Lovenox? No Safety- Improve/Maintain Start: 07/04/18 18:22 Freq: QSHIFT Status: Active Target: Protocol: Activity Type Activity Date Activity User E-Sign Co-Sign Detail Recorded Client Recorded Date Recorded By Document 07/09/18 20:00 [id number] [email or web address] 07/09/18 23:52 [id number] 07/09/18 20:00 PMRU Outcome: Safety Outcome/Goals Remain Free of Injury or Harm Cooperates with Safety Measures for Least Restrictive Environment Progression Toward Outcome/Goals Progressing Outcome/Goals Met Comment PA and BA off for trial period, following safety protocol . Medicine Note: Length of Stay: 2 days Anticipated Discharge Destination: Home Tentative Discharge Date: 07/12/18 Discharged to: Home
[2018-07-10] MEDS: Atorvastatin* 40 MG TAB PO SCH (17:28)
--- NOTE | 2018-07-10 18:12 | PN ---
Progress Note Date of Service: 07/10/18 Note: VIRGIL BLEVINS was visited. Therapy notes read and reviewed. She was discussedin interdisciplinary team rounds. She tends to catch her foot more, the more tired she is. Will try to get an off the shelf AFO from [facility] Current Medications: Active Medications Generic Name Dose Route Start Last Admin Trade Name Freq PRN Reason Stop Dose Admin Acetaminophen 650 mg 07/04/18 16:06 Tylenol Tab* PO Q6H PRN FEVER/PAIN Aspirin 81 mg 07/05/18 09:00 07/10/18 09:48 Aspirin Ec Tab* PO 81 mg DAILY DANIKA Administration Atorvastatin Calcium 40 mg 07/04/18 17:00 07/10/18 17:28 Lipitor* PO 40 mg 1700 DANIKA Administration Clopidogrel Bisulfate 75 mg 07/05/18 09:00 07/10/18 09:48 Plavix Tab* PO 75 mg DAILY DANIKA Administration Diltiazem HCl 180 mg 07/05/18 09:00 07/10/18 09:48 Cardizem Cd Cap* PO 180 mg DAILY DANIKA Administration Docusate Sodium 100 mg 07/04/18 21:00 07/10/18 09:48 Colace Cap* PO 100 mg BID DANIKA Administration Heparin Sodium (Porcine) 5,000 units 07/06/18 09:00 07/10/18 09:50 Heparin Vial(*) SUBCUT 5,000 units Q12H DANIKA Administration Nicotine 1 patch 07/05/18 08:00 07/10/18 09:47 Nicotine Patch 14 Mg/24 Hr* TRANSDERM 1 patch 0800 DANIKA Administration Pharmacy Profile Note 1 note 07/04/18 21:00 07/09/18 20:18 Nicotine Patch Removal Note* FOLLOW UP 1 note 2100 DANIKA Administration Senna 2 tab 07/04/18 16:06 07/08/18 21:37 Senokot Tab* PO 2 tab BEDTIME PRN Administration CONSTIPATION Vital Signs: Vital Signs Temp Pulse Resp BP Pulse Ox 98.1 F 76 16 122/73 99 07/10/18 16:04 07/10/18 16:04 07/10/18 16:04 07/10/18 16:04 07/10/18 16:04 Exam: HEENT: EOMI LUNGS: Clear HEART: Reg rhythm ABDOMEN: Ecchymoses from SQ heparin EXTREMITIES: Normal tone NEUROLOGIC: Right plantarflexion and dorsiflexion tests well PF4+/5, DF 5/5. Sensation intact Assessment/Plan: 1. Left PASHA CVA: PT/OT. DAPT with Plavix/ASA for 30 days, then ASA alone. May need AFO 2. HTN: Cardizem CD 3. Nicotine Addiction: Nicotine patch 4. DVT Prophylaxis: Heparin SQ 5. Advanced Directives: Full Code 07/10/18 18:13
[2018-07-10] MEDS ORDERED: Melatonin 3 MG TAB PO PRN (19:25)
[2018-07-10] MEDS: Nicotine Patch Removal NOTE FOLLOW UP SCH (20:05)
[2018-07-11] MEDS: Nicotine PATCH 14 MG/24 HR* PATCH TRANSDERM SCH (10:22)
[2018-07-11] MEDS: Heparin VIAL(*) 5000 UNITS/ML VIAL (FIVE THOUSAND) SUBCUT SCH (10:23)
[2018-07-11] MEDS: Aspirin EC TAB* 81 MG TAB.EC PO SCH (10:23)
[2018-07-11] MEDS: Clopidogrel TAB* 75 MG PO SCH (10:23)
[2018-07-11] MEDS: Diltiazem CD CAP* 180 MG PO SCH (10:23)
[2018-07-11] MEDS: Docusate CAP* 100 MG PO SCH ×2 (10:23→20:20)
[2018-07-11] MEDS: Atorvastatin* 40 MG TAB PO SCH (16:25)
--- NOTE | 2018-07-11 19:25 | PN ---
Progress Note Date of Service: 07/11/18 Note: VIRGIL BLEVINS was visited. Therapy notes read and reviewed. She feels ready to go home. BP stable. No complaints. Current Medications: Active Medications Generic Name Dose Route Start Last Admin Trade Name Freq PRN Reason Stop Dose Admin Acetaminophen 650 mg 07/04/18 16:06 Tylenol Tab* PO Q6H PRN FEVER/PAIN Aspirin 81 mg 07/05/18 09:00 07/11/18 10:23 Aspirin Ec Tab* PO 81 mg DAILY DANIKA Administration Atorvastatin Calcium 40 mg 07/04/18 17:00 07/11/18 16:25 Lipitor* PO 40 mg 1700 DANIKA Administration Clopidogrel Bisulfate 75 mg 07/05/18 09:00 07/11/18 10:23 Plavix Tab* PO 75 mg DAILY DANIKA Administration Diltiazem HCl 180 mg 07/05/18 09:00 07/11/18 10:23 Cardizem Cd Cap* PO 180 mg DAILY DANIKA Administration Docusate Sodium 100 mg 07/04/18 21:00 07/11/18 10:23 Colace Cap* PO 100 mg BID DANIKA Administration Melatonin 3 mg 07/10/18 19:25 07/11/18 02:19 Melatonin PO 3 mg BEDTIME PRN Administration SLEEP Nicotine 1 patch 07/05/18 08:00 07/11/18 10:22 Nicotine Patch 14 Mg/24 Hr* TRANSDERM 1 patch 0800 DANIKA Administration Pharmacy Profile Note 1 note 07/04/18 21:00 07/10/18 20:05 Nicotine Patch Removal Note* FOLLOW UP 1 note 2100 DANIKA Administration Senna 2 tab 07/04/18 16:06 07/08/18 21:37 Senokot Tab* PO 2 tab BEDTIME PRN Administration CONSTIPATION Vital Signs: Vital Signs Temp Pulse Resp BP Pulse Ox 97.9 F 79 18 130/60 100 07/11/18 17:23 07/11/18 17:23 07/11/18 17:23 07/11/18 17:23 07/11/18 17:23 Exam: HEENT: EOMI LUNGS: Clear HEART: Reg rhythm ABDOMEN: Ecchymoses from SQ heparin EXTREMITIES: Normal tone NEUROLOGIC: Right plantarflexion and dorsiflexion tests well PF4+/5, DF 5/5. Sensation intact Assessment/Plan: 1. Left PASHA CVA: PT/OT. DAPT with Plavix/ASA for 30 days, then ASA alone. May need AFO 2. HTN: Cardizem CD 3. Nicotine Addiction: Nicotine patch 4. DVT Prophylaxis: Heparin SQ, can stop due to bruising 5. Advanced Directives: Full Code 07/11/18 19:26
[2018-07-11] MEDS: Nicotine Patch Removal NOTE FOLLOW UP SCH (20:20)
[2018-07-12 08:22] VITALS: BP 121/67
[2018-07-12] MEDS: Nicotine PATCH 14 MG/24 HR* PATCH TRANSDERM SCH (09:47)
[2018-07-12] MEDS: Aspirin EC TAB* 81 MG TAB.EC PO SCH (09:47)
[2018-07-12] MEDS: Docusate CAP* 100 MG PO SCH (09:48)
[2018-07-12] MEDS: Clopidogrel TAB* 75 MG PO SCH (09:48)
[2018-07-12] MEDS: Diltiazem CD CAP* 180 MG PO SCH (09:48)
--- NOTE | 2018-07-12 22:56 | DS ---
CC: Dr. Rockwell in [place] * DISCHARGE SUMMARY: DATE OF ADMISSION: 07/04/18 DATE OF DISCHARGE: 07/12/18 DISCHARGE DIAGNOSES: 1. Left-sided stroke with right-sided weakness. 2. Hypertension. 3. Hypercholesterolemia. 4. Nicotine addiction. HISTORY OF PRESENT ILLNESS AND HOSPITAL COURSE: For a complete history of the events leading up to her rehab stay, please see the history and physical dictated by me on 07/04/18. While on the rehab unit, Tiffanie remained fairly stable from a medical point of view. She was maintained on heparin for DVT prophylaxis. She was on aspirin and Plavix for secondary stroke prevention and nicotine patch for smoking cessation. She did have a lung nodule on her chest x -ray which will be followed up on. Otherwise, she was medically stable. She was seen by both Physical and Occupational Therapy and made good gains with both disciplines. With Physical Therapy at the time of admission, the patient required contact guard to do a transfer, contact guard to ambulate 150 feet. With Occupational Therapy at the time of admission, the patient required supervision for upper body dressing, supervision for lower body dressing, contact guard for toilet transfer, contact guard for toileting. By the time of discharge, the patient was independent transfers, independent ambulating 300 feet, she was independent going up and down 12 stairs, independent with all of her activities of daily living. The patient was discharged home on 07/12/18. DISCHARGE DIET: Regular. DISCHARGE MEDICATIONS: 1. Aspirin 81 mg orally once a day. 2. Lipitor 40 mg daily. 3. Plavix 75 mg daily. 4. Cardizem CD 180 mg daily. 5. Nicotine patch 14 mg for 24 hours changing daily. SERVICES AFTER DISCHARGE: The patient will have outpatient physical therapy. FOLLOWUP: She will follow up with Dr. Cornel Schultz in 4 to 6 weeks regarding her dual antiplatelet therapy. She will also follow up with her primary care doctor, Dr. Rockwell. For the pulmonary nodule, she will follow up with the pot feeder, Dr. Arguelles, in 1 to 2 weeks or the interventional radiologist, Dr. Baker in [place]. TIME SPENT: Time on this discharge was approximately 45 minutes, greater than half of which was spent with the patient explaining post-rehabilitation followup , medications, and therapies. [id number]/[facility] #: [id number] [facility]
== END 2018-07-12 14:29 | disposition home or self-care (01) | DRG 58 ==
LOC: PMRU 14:34
PROVIDERS: ADMIT Physical Medicine & Rehabilitation; ATTEND Physical Medicine & Rehabilitation
PROC: F07Z5ZZ Bed Mobility Treatment (ICD-10-PCS; principal; 2018-07-04)
PROC: F07Z9ZZ Gait Training/Functional Ambulation Treatment (ICD-10-PCS; 2018-07-04)
PROC: F07Z8ZZ Transfer Training Treatment (ICD-10-PCS; 2018-07-04)
PROC: F08Z0ZZ Bathing/Showering Techniques Treatment (ICD-10-PCS; 2018-07-04)
PROC: F08Z1ZZ Dressing Techniques Treatment (ICD-10-PCS; 2018-07-04)
PROC: F08Z3ZZ Feeding/Eating Treatment (ICD-10-PCS; 2018-07-04)
DX: I69.341 Monoplegia of lower limb following cerebral infarction affecting right dominant side (principal); I10 Essential (primary) hypertension; E78.00 Pure hypercholesterolemia, unspecified; F17.210 Nicotine dependence, cigarettes, uncomplicated; R91.1 Solitary pulmonary nodule; Z88.2 Allergy status to sulfonamides; Z79.899 Other long term (current) drug therapy
CPT/HCPCS: 36415; 80053; 85025; A9270-GY; J1644

== ENCOUNTER → 2018-09-19 11:15 | Day surgery (SDC) | payer OTHER ==
[~2018-09-19 11:15] MED LIST: Aspirin 81 mg CHEW TAB* 81 MG TAB.CHEW ONE; Aspirin 81 mg CHEW TAB* 81 MG TAB.CHEW PO ONE; Benzocaine/Butamben/Tetracain (CETACAINE - SINGLE USE) 5 gm TOPICAL ONE; Buffered Lidocaine 1% SYRIN* 1 ML/SYRINGE INTRADERM ONE; Dexamethasone IV* 4 MG/ML 1 ML (4 MG) IV SLOW PU ONE; Dexamethasone IV* 4 MG/ML 1 ML (4 MG) ONE; DiMENhydriNATE IV* 50 MG/ML VIAL IV PUSH PRN; Famotidine IV* 10 MG/ML 2 ML (20 mg) IV ONE; Famotidine IV* 10 MG/ML 2 ML (20 mg) ONE; Lactated Ringers 1000 ML Bag* 1,000 ML IV SCH; Lidocaine 2% PF * 5 ML VIAL ONE; Midazolam* 1 MG/ML 2 ML VIAL (2 MG) ONE; Naloxone* 0.4 MG/ML 1 ML VIAL IV PRN; Ondansetron INJ* 2 MG/ML VIAL ONE; ROPIVACAINE 5 MG/ML 30 ML BTL (0.5%) ONE; fentaNYL* 50 MCG/ML 2 ML VIAL (100 MCG VIAL) IV PRN; fentaNYL* 50 MCG/ML 2 ML VIAL (100 MCG VIAL) ONE
--- NOTE | 2018-09-19 14:41 | PRO ---
BRONCHOSCOPY REPORT: DATE OF PROCEDURE: 09/19/18 - [facility] PROCEDURE PERFORMED: Bronchoscopy with endobronchial ultrasound-guided fine needle aspiration from mediastinal and hilar nodes. PREPROCEDURAL DIAGNOSIS: Lung mass on the left side. ANESTHESIA: General anesthesia. ANESTHESIOLOGIST: Dr. Wolfe. DESCRIPTION OF PROCEDURE: The patient recently was admitted for CVA. CT at that time showed evidence of left upper lobe mass with interval increase in size concerning for malignancy. Appropriate time-out was agreed on by attending staff prior to the procedure. Informed consent was obtained from the patient prior to the procedure after all the risks and benefits were thoroughly explained. The patient was intubated with size 8.5 endotracheal tube. A flexible Olympus bronchoscope was inserted through ET tube for airway inspection. No endobronchial lesions were noted. Thin secretions were noted and were suctioned out. Bronchoscope was then withdrawn and EBUS bronchoscope was inserted. R4 was sampled with 2 passes. Rapid on-site evaluation revealed lymphatic tissue with no malignant cells. Station 7 was then accessed with 2 passes. Rapid on-site evaluation revealed lymphatic tissue with no malignant cells. L4 was then accessed with 2 passes. Rapid on-site evaluation revealed lymphatic tissue with no malignant cells. L10 was then accessed with 6 passes. Rapid on-site evaluation revealed lymphatic tissue with no malignant cells. The patient tolerated the procedure well. The patient was extubated and seen in Recovery in optimal condition. Rest of the sample was placed in [employer]to[employer]. [id number]/[facility] #: [id number] [facility]
[2018-09-19 15:45] VITALS: BP 135/81
== END | disposition home or self-care (01) ==
LOC: OR 11:15
PROVIDERS: ATTEND Internal Medicine
DX: R91.1 Solitary pulmonary nodule (principal); Z87.891 Personal history of nicotine dependence; I10 Essential (primary) hypertension; Z86.73 Personal history of transient ischemic attack (TIA), and cerebral infarction without residual deficits; Z79.01 Long term (current) use of anticoagulants
CPT/HCPCS: 88172; 88173; 88177; 88305; A9270-GY; J1100; J2250; J2405; J2795; J3010

== ENCOUNTER 2023-12-19 08:18 | Observation (INO) ==
[~2023-12-19 08:18] MED LIST changes: -Aspirin 81 mg CHEW TAB* 81 MG TAB.CHEW ONE; -Aspirin 81 mg CHEW TAB* 81 MG TAB.CHEW PO ONE; -Benzocaine/Butamben/Tetracain (CETACAINE - SINGLE USE) 5 gm TOPICAL ONE; -Buffered Lidocaine 1% SYRIN* 1 ML/SYRINGE INTRADERM ONE; -Dexamethasone IV* 4 MG/ML 1 ML (4 MG) IV SLOW PU ONE; -Dexamethasone IV* 4 MG/ML 1 ML (4 MG) ONE; -DiMENhydriNATE IV* 50 MG/ML VIAL IV PUSH PRN; -Famotidine IV* 10 MG/ML 2 ML (20 mg) IV ONE; -Famotidine IV* 10 MG/ML 2 ML (20 mg) ONE; -Lactated Ringers 1000 ML Bag* 1,000 ML IV SCH; -Lidocaine 2% PF * 5 ML VIAL ONE; -Midazolam* 1 MG/ML 2 ML VIAL (2 MG) ONE; -Naloxone* 0.4 MG/ML 1 ML VIAL IV PRN; -Ondansetron INJ* 2 MG/ML VIAL ONE; -ROPIVACAINE 5 MG/ML 30 ML BTL (0.5%) ONE; +TARLATAMAB-DLLE 1 MG in NS 0.9% 250 ml 248.9 ML IVPB SCH; -fentaNYL* 50 MCG/ML 2 ML VIAL (100 MCG VIAL) IV PRN; -fentaNYL* 50 MCG/ML 2 ML VIAL (100 MCG VIAL) ONE
[2023-12-19] MEDS ORDERED: Dexamethasone IV 4 MG/ML VIAL 1 ml VIAL ONE (08:48)
[2023-12-19] MEDS ORDERED: Dexamethasone IV 4 MG/ML VIAL 1 ml VIAL IV SLOW PU PRN (12:38)
[2023-12-19] MEDS ORDERED: Tocilizumab 200 MG/10 ML 10 ml VIAL IVPB PRN (12:40)
[2023-12-19] MEDS: NS 0.9% 1000 ml BAG 1,000 ML IV SCH (14:30)
[2023-12-19] MEDS ORDERED: Multivitamins/Minerals TAB PO PRN (16:09)
[2023-12-19] MEDS: Enoxaparin 40 MG/0.4 ML SYR SUBCUT SCH (17:01)
[2023-12-20] MEDS: Calcium Carb (TUMS) 500 mg CHEW TAB PO PRN (01:21)
[2023-12-20 06:09] LABS: ABS Lymphocytes 0.3 10^3/uL (1.0-4.8); ABS Monocytes 0.9 10^3/uL (0.0-0.9); ABS Neutrophils 3.9 10^3/uL (1.5-7.6); ABS Nucleated RBC 0.01 10^3/ul; Eosinophil % 0.1 %; Hematocrit 20.3 % (35-45); Hemoglobin 6.7 g/dL (11.5-14.3); Lymphocyte % 5.9 %; Mean Corpuscular Hemoglobin 29.7 pg (27-33); Mean Corpuscular Hgb Conc 33.2 g/dL (31-36); Mean Corpuscular Volume 89.5 fL (80-97); Nucleated Red Blood Cells % 0.2 %/100WBC (0.0-0.8); Platelet Count 225 10^3/uL (150-450); Red Blood Count 2.26 10^6/uL (3.63-4.92); Red Cell Distribution Width 17.5 % (12-17); White Blood Count 5.1 10^3/uL (3.8-11.8)
[2023-12-20 06:19] LABS: Albumin 3.4 g/dL (3.2-5.2); Albumin/Globulin Ratio 1.4 (1-3); Calcium 8.4 mg/dL (8.6-10.3); Creatinine, Serum 0.62 mg/dL (0.51-0.95); Globulin 2.5 g/dL (2-4); Potassium 3.9 mmol/L (3.5-5.0); Total Bilirubin 0.2 mg/dL (0.2-1.0); Total Protein 5.9 g/dL (6.4-8.9); eGFR CKD-EPI 96.9 (>60)
[2023-12-20] MEDS: CMCS:OMEGA-3 FATTY ACID 1000 mg(NF) PO SCH (09:55)
[2023-12-20] MEDS: Potassium Chlor 20 meq TAB.ER PO SCH (09:57)
[2023-12-20 14:38] VITALS: BP 162/103
[2023-12-21] MEDS ORDERED: CMCS:OMEGA-3 FATTY ACID 1000 mg(NF) PO SCH (09:00)
== END 2023-12-20 15:35 | disposition home or self-care (01) ==
LOC: MED 08:18 → CHOA 08:18
PROVIDERS: ADMIT Internal Medicine Hematology & Oncology; ATTEND Internal Medicine Hematology & Oncology

== ENCOUNTER 2023-12-26 08:05 | Observation (INO) ==
[~2023-12-26 08:05] MED LIST changes: +NS 0.9% IVPB SCH; -TARLATAMAB-DLLE 1 MG in NS 0.9% 250 ml 248.9 ML IVPB SCH; +[UNRECOGNIZED DRUG - OTHER] IVPB SCH
[2023-12-26] MEDS ORDERED: Dexamethasone IV 4 MG/ML VIAL 1 ml VIAL ONE (08:45)
[2023-12-26] MEDS ORDERED: Dexamethasone IV 4 MG/ML VIAL 1 ml VIAL IV SLOW PU PRN (08:58)
[2023-12-26] MEDS ORDERED: Tocilizumab 200 MG/10 ML 10 ml VIAL IVPB ONE (09:01)
[2023-12-26] MEDS ORDERED: Multivitamins/Minerals TAB PO PRN (15:40)
[2023-12-26] MEDS: NS 0.9% 1000 ml BAG 1,000 ML IV SCH (16:08)
[2023-12-26] MEDS ORDERED: TOCILIZUMAB IVPB PRN (17:05)
[2023-12-26] MEDS ORDERED: NS 0.9% IVPB PRN (17:05)
[2023-12-27] MEDS: Calcium Carb (TUMS) 500 mg CHEW TAB PO PRN (01:14)
[2023-12-27 06:32] LABS: ABS Lymphocytes 0.3 10^3/uL (1.0-4.8); ABS Neutrophils 5.5 10^3/uL (1.5-7.6); ABS Nucleated RBC 0.01 10^3/ul; Hematocrit 22.8 % (35-45); Hemoglobin 7.8 g/dL (11.5-14.3); Lymphocyte % 4.2 %; Mean Corpuscular Hemoglobin 30.6 pg (27-33); Mean Corpuscular Hgb Conc 34.4 g/dL (31-36); Mean Platelet Volume 8.5 fL (7.5-11.2); Nucleated Red Blood Cells % 0.2 %/100WBC (0.0-0.8); Platelet Count 245 10^3/uL (150-450); Red Blood Count 2.56 10^6/uL (3.63-4.92); Red Cell Distribution Width 16.6 % (12-17); White Blood Count 6.8 10^3/uL (3.8-11.8)
[2023-12-27 07:16] LABS: Albumin 3.4 g/dL (3.2-5.2); Albumin/Globulin Ratio 1.5 (1-3); Calcium 8.7 mg/dL (8.6-10.3); Creatinine, Serum 0.69 mg/dL (0.51-0.95); Globulin 2.2 g/dL (2-4); Potassium 4.4 mmol/L (3.5-5.0); Total Bilirubin 0.3 mg/dL (0.2-1.0); Total Protein 5.6 g/dL (6.4-8.9); eGFR CKD-EPI 94.5 (>60)
[2023-12-27] MEDS: Potassium Chlor 20 meq TAB.ER PO SCH (09:59)
[2023-12-27] MEDS: Cholecalciferol (VIT D3) 1,000 unit TAB PO SCH (09:59)
[2023-12-27] MEDS: Aspirin EC 81 mg TAB.EC (enteric coated) PO SCH (09:59)
[2023-12-27] MEDS: Influenza Vaccine *TRI* 2024-25* 0.5 ML SYRINGE IM ONE (10:05)
[2023-12-27 14:25] VITALS: BP 160/79
== END 2023-12-27 15:15 | disposition home or self-care (01) ==
LOC: CHOA 08:05 → MED 08:05
PROVIDERS: ADMIT Internal Medicine Hematology & Oncology; ATTEND Internal Medicine Hematology & Oncology

== ENCOUNTER 2024-03-05 09:30 | Inpatient (IN) ==
[2024-03-05 10:50] LABS: Hematocrit 21.6 % (35-45); Hemoglobin 7.1 g/dL (11.5-14.3); Mean Corpuscular Hemoglobin 28.9 pg (27-33); Mean Corpuscular Hgb Conc 32.9 g/dL (31-36); Mean Corpuscular Volume 87.9 fL (80-97); Mean Platelet Volume 8.6 fL (7.5-11.2); Platelet Count 100 10^3/uL (150-450); Red Blood Count 2.46 10^6/uL (3.63-4.92); Red Cell Distribution Width 16.9 % (12-17); White Blood Count 34.6 10^3/uL (3.8-11.8)
[2024-03-05 10:51] LABS: INR 1.58 (0.85-1.14)
[2024-03-05 11:47] LABS: Albumin 3.1 g/dL (3.2-5.2); Albumin/Globulin Ratio 1.3 (1-3); Calcium 8.8 mg/dL (8.6-10.3); Creatinine, Serum 1.63 mg/dL (0.51-0.95); Globulin 2.3 g/dL (2-4); Potassium 3.7 mmol/L (3.5-5.0); Total Bilirubin 0.4 mg/dL (0.2-1.0); Total Protein 5.4 g/dL (6.4-8.9); eGFR CKD-EPI 34.1 (>60)
[2024-03-05 12:50] LABS: ABS Basophils 0.3 10^3/uL (0.0-0.1); ABS Eosinophils 0.6 10^3/uL (0.0-0.5); ABS Lymphocytes 1.7 10^3/uL (1.0-4.8); ABS Monocytes 21.1 10^3/uL (0.0-0.9); ABS Neutrophils 10.8 10^3/uL (1.5-7.6); ABS Nucleated RBC 0.04 10^3/ul; Anisocytosis 2+; Eosinophil % 1.8 %; Nucleated Red Blood Cells % 0.1 %/100WBC (0.0-0.8)
[2024-03-05 13:00] LABS: High Sensitivity Troponin 1 Hr 12 pg/mL (<15)
[2024-03-05] MEDS: Iodixanol 320 (CONTRAST) 100 ML SDV IV ONE (13:33)
[2024-03-05] MEDS ORDERED: Senna TAB 8.6 mg TAB PO PRN (14:59)
[2024-03-05 15:32] LABS: Uric Acid 7.8 mg/dL (2.3-6.6)
[2024-03-05] MEDS ORDERED: Sulfur Hexaflouride MICROSPHR 25 MG VIAL IV PRN (16:41)
[2024-03-05] MEDS: cefTRIAXone 1 gm/50 mL D5W 1 GM/50 ML BAG IV SCH (18:07)
[2024-03-05] MEDS: Azithromycin 500 mg/250 ml NS 500 MG/250 ML BAG IVPB SCH (18:15)
[2024-03-05] MEDS: Lactated Ringers 1000 ml BAG 1,000 ML IV SCH (18:15)
[2024-03-05 18:51] LABS: Activated Partial Thrombo Time 29.4 seconds (26.0-38.0); INR 1.49 (0.85-1.14)
[2024-03-05 20:21] LABS: Hematocrit 21.9 % (35-45); Hemoglobin 7.5 g/dL (11.5-14.3)
[2024-03-05 21:16] LABS: Urine Appearance Clear; Urine Bilirubin Negative (Negative); Urine Blood 1+ (Negative); Urine Color Light-Yellow; Urine Glucose Negative (Negative); Urine Ketones Negative (Negative); Urine Nitrite Negative (Negative); Urine Protein 2+ (>=100 mg/dL) (Negative); Urine Specific Gravity 1.041 (1.002-1.030); Urine Urobilinogen Negative (Negative)
[2024-03-05 21:29] LABS: Urine Bacteria Absent /HPF (Absent); Urine Red Blood Cell 1+(3-5/hpf) /HPF (0-Trace); Urine Squamous Epithelial Cell Present /HPF (Absent); Urine White Blood Cell 2+(11-20/hpf) /HPF (0-Trace)
[2024-03-05] MEDS: Heparin 5000 UNITS/ML 1 mL VIAL SUBCUT SCH (21:59)
[2024-03-06 06:45] LABS: Albumin 2.7 g/dL (3.2-5.2); Albumin/Globulin Ratio 1.2 (1-3); Calcium 8.2 mg/dL (8.6-10.3); Creatinine, Serum 1.49 mg/dL (0.51-0.95); Globulin 2.2 g/dL (2-4); Magnesium 1.5 mg/dL (1.9-2.7); Potassium 3.3 mmol/L (3.5-5.0); Total Bilirubin 0.4 mg/dL (0.2-1.0); Total Protein 4.9 g/dL (6.4-8.9)
[2024-03-06] MEDS: Magnesium Sulf 4 GM/100 ML IV 4,000 MG/100 ML BAG IVPB ONE (08:28)
[2024-03-06] MEDS: Potassium Chlor 20 meq TAB.ER PO SCH (08:29)
[2024-03-06] MEDS: Potassium Chlor 20 meq TAB.ER PO ONE (08:29)
[2024-03-06 08:59] LABS: ABS Basophils 0.2 10^3/uL (0.0-0.1); ABS Eosinophils 0.9 10^3/uL (0.0-0.5); ABS Lymphocytes 1.3 10^3/uL (1.0-4.8); ABS Monocytes 23.7 10^3/uL (0.0-0.9); ABS Neutrophils 9.1 10^3/uL (1.5-7.6); ABS Nucleated RBC 0.04 10^3/ul; Anisocytosis 1+; Eosinophil % 2.6 %; Hematocrit 22.6 % (35-45); Hemoglobin 7.7 g/dL (11.5-14.3); Lymphocyte % 3.7 %; Mean Corpuscular Hemoglobin 29.7 pg (27-33); Mean Corpuscular Hgb Conc 34.2 g/dL (31-36); Mean Corpuscular Volume 86.9 fL (80-97); Mean Platelet Volume 9.3 fL (7.5-11.2); Nucleated Red Blood Cells % 0.1 %/100WBC (0.0-0.8); Platelet Count 73 10^3/uL (150-450); Red Cell Distribution Width 16.5 % (12-17); White Blood Count 35.3 10^3/uL (3.8-11.8)
[2024-03-06] MEDS: NS 0.9% 1000 ml BAG 1,000 ML IV ONE (17:17)
[2024-03-07 05:39] LABS: Albumin 2.5 g/dL (3.2-5.2); Albumin/Globulin Ratio 1.2 (1-3); Calcium 7.9 mg/dL (8.6-10.3); Creatinine, Serum 1.23 mg/dL (0.51-0.95); Globulin 2.1 g/dL (2-4); Magnesium 2.1 mg/dL (1.9-2.7); Potassium 3.3 mmol/L (3.5-5.0); Total Bilirubin 0.3 mg/dL (0.2-1.0); Total Protein 4.6 g/dL (6.4-8.9); eGFR CKD-EPI 47.9 (>60)
[2024-03-07 06:57] LABS: ABS Basophils 0.5 10^3/uL (0.0-0.1); ABS Eosinophils 1.1 10^3/uL (0.0-0.5); ABS Lymphocytes 1.5 10^3/uL (1.0-4.8); ABS Monocytes 28.5 10^3/uL (0.0-0.9); ABS Neutrophils 10.5 10^3/uL (1.5-7.6); ABS Nucleated RBC 0.06 10^3/ul; Eosinophil % 2.6 %; Hematocrit 20.8 % (35-45); Lymphocyte % 3.6 %; Mean Corpuscular Hemoglobin 29.2 pg (27-33); Mean Corpuscular Hgb Conc 33.5 g/dL (31-36); Mean Corpuscular Volume 87.2 fL (80-97); Mean Platelet Volume 9.5 fL (7.5-11.2); Nucleated Red Blood Cells % 0.1 %/100WBC (0.0-0.8); Platelet Count 60 10^3/uL (150-450); Red Blood Count 2.39 10^6/uL (3.63-4.92); Red Cell Distribution Width 16.8 % (12-17); White Blood Count 42.1 10^3/uL (3.8-11.8)
[2024-03-07 06:58] LABS: Anisocytosis 2+
[2024-03-07] MEDS: Lactated Ringers 1000 ml BAG 1,000 ML IV SCH (11:08)
[2024-03-07 11:09] LABS: C Reactive Protein 166.64 mg/L (<8.01)
[2024-03-07 11:57] LABS: Erythrocyte Sed Rate 74 mm/Hr (0-29)
[2024-03-08 04:31] LABS: Creatinine, Serum 1.18 mg/dL (0.51-0.95); Magnesium 1.7 mg/dL (1.9-2.7); Phosphorus 3.3 mg/dL (2.5-5.0); Uric Acid 6.3 mg/dL (2.3-6.6); eGFR CKD-EPI 50.3 (>60)
[2024-03-08 05:32] LABS: Hematocrit 23.2 % (35-45); Hemoglobin 7.6 g/dL (11.5-14.3); Mean Corpuscular Hemoglobin 28.9 pg (27-33); Mean Corpuscular Hgb Conc 32.6 g/dL (31-36); Mean Corpuscular Volume 88.8 fL (80-97); Red Blood Count 2.62 10^6/uL (3.63-4.92); Red Cell Distribution Width 16.4 % (12-17); White Blood Count 46.6 10^3/uL (3.8-11.8)
[2024-03-08 05:46] LABS: Platelet Count 45 10^3/uL (150-450)
[2024-03-08 05:47] LABS: ABS Basophils 0.2 10^3/uL (0.0-0.1); ABS Eosinophils 0.7 10^3/uL (0.0-0.5); ABS Lymphocytes 1.5 10^3/uL (1.0-4.8); ABS Monocytes 34.6 10^3/uL (0.0-0.9); ABS Neutrophils 9.6 10^3/uL (1.5-7.6); ABS Nucleated RBC 0.11 10^3/ul; Eosinophil % 1.6 %; Hypochromasia 1+; Lymphocyte % 3.1 %; Nucleated Red Blood Cells % 0.2 %/100WBC (0.0-0.8)
[2024-03-08] MEDS: Magnesium Sulfate 2 gm BAG 2 GM/50 ML BAG IVPB ONE (09:21)
[2024-03-08] MEDS: Potassium Chlor 20 meq TAB.ER PO SCH (09:27)
[2024-03-08] MEDS: Magnesium Sulfate IV 1GM/100ML 1 GM/100 ML BAG IV ONE (11:14)
[2024-03-08] MEDS: Lactated Ringers 1000 ml BAG 1,000 ML IV SCH (12:11)
[2024-03-08] MEDS ORDERED: Zosyn per Pharmacy NOTE FOLLOW UP SCH (15:00)
[2024-03-08] MEDS: Piperacillin/Tazobac 3.375 BAG 3.375 GM/100 ML BAG IV ONE (16:18)
[2024-03-08] MEDS ORDERED: Vancomycin per Pharmacy 1 EA NOTE FOLLOW UP SCH (17:00)
[2024-03-08] MEDS: Vancomycin 1,000 MG in NS 0.9% 250 ml 250 ML IVPB ONE (17:43)
[2024-03-08] MEDS: Vancomycin 1000 MG in NS 0.9% 250 ML IVPB SCH (17:59)
[2024-03-08] MEDS: ZOSYN 3.375 GM Q8H per EXTENDED INFUSION IV SCH (22:33)
[2024-03-08] MEDS: Albuterol/Ipratropium NEB.SOL (2.5/0.5 MG) 3 ML NEB.SOLN INH ONE ×2 (22:34→22:42)
[2024-03-09] MEDS: ZOSYN 3.375 GM Q8H per EXTENDED INFUSION IV SCH (06:04)
[2024-03-09 09:41] LABS: Albumin 2.5 g/dL (3.2-5.2); Albumin/Globulin Ratio 1.3 (1-3); Calcium 8.4 mg/dL (8.6-10.3); Creatinine, Serum 1.08 mg/dL (0.51-0.95); Magnesium 1.8 mg/dL (1.9-2.7); Potassium 3.4 mmol/L (3.5-5.0); Total Bilirubin 0.6 mg/dL (0.2-1.0); Total Protein 4.5 g/dL (6.4-8.9)
[2024-03-09] MEDS: Alteplase (CATHFLO) 2 MG VIAL IV ONE (11:28)
[2024-03-09] MEDS: Azithromycin 500 mg/250 ml NS 500 MG/250 ML BAG IVPB SCH (11:31)
[2024-03-09 11:41] LABS: ABS Basophils 0.9 10^3/uL (0.0-0.1); ABS Eosinophils 0.9 10^3/uL (0.0-0.5); ABS Lymphocytes 2.1 10^3/uL (1.0-4.8); ABS Monocytes 38.2 10^3/uL (0.0-0.9); ABS Neutrophils 6.9 10^3/uL (1.5-7.6); ABS Nucleated RBC 0.14 10^3/ul; Eosinophil % 1.8 %; Hematocrit 24.2 % (35-45); Hemoglobin 8.2 g/dL (11.5-14.3); Lymphocyte % 4.3 %; Mean Corpuscular Hemoglobin 29.8 pg (27-33); Mean Corpuscular Hgb Conc 33.8 g/dL (31-36); Mean Corpuscular Volume 88.3 fL (80-97); Mean Platelet Volume 8.7 fL (7.5-11.2); Nucleated Red Blood Cells % 0.3 %/100WBC (0.0-0.8); Platelet Count 40 10^3/uL (150-450); RBC Morphology Normal (Normal); Red Blood Count 2.74 10^6/uL (3.63-4.92); Red Cell Distribution Width 16.3 % (12-17)
[2024-03-09] MEDS: Vancomycin 1000 MG in NS 0.9% 250 ML IVPB SCH (16:55)
[2024-03-09] MEDS: Albuterol 2.5mg/3 ml (0.083%) NEB.SOLN INH PRN (22:47)
[2024-03-10] MEDS: Morphine 2 MG/ML SYRINGE IV ONE (00:51)
[2024-03-10] MEDS: Albuterol/Ipratropium NEB.SOL (2.5/0.5 MG) 3 ML NEB.SOLN INH ONE (01:21)
[2024-03-10 07:06] LABS: Hematocrit 22.3 % (35-45); Hemoglobin 7.3 g/dL (11.5-14.3); Mean Corpuscular Hemoglobin 29.4 pg (27-33); Mean Corpuscular Hgb Conc 32.7 g/dL (31-36); Mean Corpuscular Volume 89.8 fL (80-97); Red Blood Count 2.49 10^6/uL (3.63-4.92); Red Cell Distribution Width 16.7 % (12-17); White Blood Count 55.2 10^3/uL (3.8-11.8)
[2024-03-10 07:09] LABS: Albumin 2.3 g/dL (3.2-5.2); Albumin/Globulin Ratio 1.2 (1-3); Calcium 8.1 mg/dL (8.6-10.3); Creatinine, Serum 1.24 mg/dL (0.51-0.95); Magnesium 1.6 mg/dL (1.9-2.7); Phosphorus 4.8 mg/dL (2.5-5.0); Potassium 3.3 mmol/L (3.5-5.0); Total Bilirubin 0.7 mg/dL (0.2-1.0); Total Protein 4.3 g/dL (6.4-8.9); Uric Acid 4.5 mg/dL (2.3-6.6); eGFR CKD-EPI 47.4 (>60)
[2024-03-10] MEDS: NS 0.9% 1000 ml BAG 1,000 ML IV SCH (08:44)
[2024-03-10] MEDS: Magnesium Sulfate 2 gm BAG 2 GM/50 ML BAG IVPB ONE (08:46)
[2024-03-10 09:10] LABS: ABS Basophils 0.3 10^3/uL (0.0-0.1); ABS Lymphocytes 2.2 10^3/uL (1.0-4.8); ABS Monocytes 44.8 10^3/uL (0.0-0.9); ABS Neutrophils 6.8 10^3/uL (1.5-7.6); ABS Nucleated RBC 0.42 10^3/ul; Anisocytosis 1+; Eosinophil % 1.9 %; Mean Platelet Volume 7.6 fL (7.5-11.2); Nucleated Red Blood Cells % 0.8 %/100WBC (0.0-0.8); Platelet Count 31 10^3/uL (150-450); Polychromasia 1+
[2024-03-10] MEDS: Magnesium Sulfate IV 1GM/100ML 1 GM/100 ML BAG IV ONE (09:59)
[2024-03-10] MEDS: KCL 20 MEQ/100 ML IVPREMIX 20 MEQ/100 ML BAG IV SCH (11:09)
[2024-03-10 18:00] LABS: Hematocrit 26.6 % (35-45); Hemoglobin 8.8 g/dL (11.5-14.3)
[2024-03-10] MEDS ORDERED: KCL 20 MEQ/100 ML IVPREMIX 20 MEQ/100 ML BAG IV ONE (18:00)
[2024-03-10] MEDS: Benzocaine/Menthol LOZ PO PRN (18:38)
[2024-03-10] MEDS: KCL 20 MEQ/100 ML IVPREMIX 20 MEQ/100 ML BAG ONE (22:25)
[2024-03-11] MEDS: Morphine 2 MG/ML SYRINGE IV PRN (02:21)
[2024-03-11 07:04] LABS: Hematocrit 24.6 % (35-45); Mean Corpuscular Hemoglobin 28.6 pg (27-33); Mean Corpuscular Hgb Conc 32.6 g/dL (31-36); Mean Corpuscular Volume 87.7 fL (80-97)
[2024-03-11 07:20] LABS: Calcium 7.8 mg/dL (8.6-10.3); Creatinine, Serum 1.2 mg/dL (0.51-0.95); Phosphorus 4.3 mg/dL (2.5-5.0); Uric Acid 3.9 mg/dL (2.3-6.6); eGFR CKD-EPI 49.3 (>60)
[2024-03-11 08:23] LABS: Anisocytosis 2+; Mean Platelet Volume 10.1 fL (7.5-11.2); Platelet Count 21 10^3/uL (150-450); Polychromasia 2+
[2024-03-11 08:24] LABS: ABS Neutrophils 19.4 10^3/ul (1.5-7.6)
[2024-03-11 08:25] LABS: ABS Basophils 0.7 10^3/ul (0.0-0.1); ABS Eosinophils 1.3 10^3/ul (0.0-0.5); ABS Monocytes 41.5 10^3/ul (0.0-0.9)
[2024-03-11] MEDS: Lidocaine 2% PF 5 ML VIAL INJ ONE (11:06)
[2024-03-11 15:13] LABS: Creatinine, Serum 1.14 mg/dL (0.51-0.95); Vancomycin Trough 11.2 mcg/mL; eGFR CKD-EPI 52.4 (>60)
[2024-03-11] MEDS: Vancomycin Trough Check NOTE FOLLOW UP ONE (16:38)
[2024-03-11 22:23] LABS: PCO2 Arterial 35 mmHg (35-45); PO2 Arterial 61 mmHg (80-100)
[2024-03-11] MEDS: Furosemide 20 mg/2 ml IV VIAL IV ONE (23:27)
[2024-03-11] MEDS: Morphine 2 MG/ML SYRINGE IV ONE (23:29)
[2024-03-12 05:41] LABS: Calcium 8.2 mg/dL (8.6-10.3); Creatinine, Serum 1.08 mg/dL (0.51-0.95); Phosphorus 4.7 mg/dL (2.5-5.0); Potassium 3.9 mmol/L (3.5-5.0); Uric Acid 4.5 mg/dL (2.3-6.6)
[2024-03-12 07:03] LABS: Hematocrit 24.6 % (35-45); Mean Corpuscular Hemoglobin 28.6 pg (27-33); Mean Corpuscular Hgb Conc 32.5 g/dL (31-36); Red Blood Count 2.79 10^6/uL (3.63-4.92); Red Cell Distribution Width 19.3 % (12-17); White Blood Count 71.3 10^3/uL (3.8-11.8)
[2024-03-12 07:41] LABS: ABS Basophils 0.6 10^3/uL (0.0-0.1); ABS Eosinophils 0.1 10^3/uL (0.0-0.5); ABS Lymphocytes 1.5 10^3/uL (1.0-4.8); ABS Monocytes 62.5 10^3/uL (0.0-0.9); ABS Neutrophils 6.7 10^3/uL (1.5-7.6); ABS Nucleated RBC 0.91 10^3/ul; Anisocytosis 1+; Eosinophil % 0.1 %; Lymphocyte % 2.1 %; Mean Platelet Volume 7.8 fL (7.5-11.2); Nucleated Red Blood Cells % 1.3 %/100WBC (0.0-0.8); Platelet Count 24 10^3/uL (150-450); Polychromasia 1+; RBC Morphology Normal (Normal)
[2024-03-12] MEDS: Furosemide 20 mg/2 ml IV VIAL IV ONE (14:58)
[2024-03-12] MEDS: Morphine 2 MG/ML SYRINGE IV PRN (15:00)
[2024-03-12] MEDS: Albuterol/Ipratropium NEB.SOL (2.5/0.5 MG) 3 ML NEB.SOLN INH SCH (15:39)
[2024-03-12] MEDS: SPIRIVA Respimat (tiotropium) 2.5 mcg/inh Inhaler INH SCH (15:50)
[2024-03-12 16:33] LABS: PCO2 Arterial 42 mmHg (35-45); PO2 Arterial 79 mmHg (80-100)
[2024-03-13 06:59] LABS: Creatinine, Serum 0.93 mg/dL (0.51-0.95); eGFR CKD-EPI 66.9 (>60)
[2024-03-13 14:18] LABS: Hematocrit 24.8 % (35-45); Hemoglobin 8.1 g/dL (11.5-14.3); Mean Corpuscular Hemoglobin 28.6 pg (27-33); Mean Corpuscular Hgb Conc 32.7 g/dL (31-36); Mean Corpuscular Volume 87.6 fL (80-97); Red Blood Count 2.83 10^6/uL (3.63-4.92); Red Cell Distribution Width 18.7 % (12-17); White Blood Count 60.5 10^3/uL (3.8-11.8)
[2024-03-13] MEDS ORDERED: Albuterol/Ipratropium NEB.SOL (2.5/0.5 MG) 3 ML NEB.SOLN INH PRN (15:00)
[2024-03-13 15:20] LABS: Albumin 2.6 g/dL (3.2-5.2); Albumin/Globulin Ratio 1.1 (1-3); Calcium 8.4 mg/dL (8.6-10.3); Creatinine, Serum 0.97 mg/dL (0.51-0.95); Globulin 2.3 g/dL (2-4); Potassium 3.9 mmol/L (3.5-5.0); Total Bilirubin 0.6 mg/dL (0.2-1.0); Total Protein 4.9 g/dL (6.4-8.9); eGFR CKD-EPI 63.6 (>60)
[2024-03-13] MEDS ORDERED: Ondansetron ODT 4 mg TAB 4 MG TAB SL PRN (17:03)
[2024-03-13 18:29] VITALS: BP 134/76
[2024-03-13] MEDS: Morphine ORAL.SOLN 10 mg 2 mg/ml UDC 5 ml (10 mg) ONE (18:29)
[2024-03-13] MEDS: Morphine ORAL CONCENTRATE 5 MG/0.25 ML ORAL.SYRIN SL PRN (19:07)
[2024-03-13 21:53] LABS: ABS Basophils 0.4 10^3/uL (0.0-0.1); ABS Eosinophils 0.4 10^3/uL (0.0-0.5); ABS Lymphocytes 2.2 10^3/uL (1.0-4.8); ABS Monocytes 50.5 10^3/uL (0.0-0.9); ABS Neutrophils 6.9 10^3/uL (1.5-7.6); ABS Nucleated RBC 0.54 10^3/ul; Anisocytosis 1+; Eosinophil % 0.7 %; Lymphocyte % 3.7 %; Mean Platelet Volume 9.8 fL (7.5-11.2); Nucleated Red Blood Cells % 0.9 %/100WBC (0.0-0.8); Platelet Count 12 10^3/uL (150-450); Polychromasia 1+
[2024-03-14] MEDS: Morphine ORAL CONCENTRATE 5 MG/0.25 ML ORAL.SYRIN SL PRN (03:43)
[2024-03-14] MEDS ORDERED: Lorazepam PYXIS KEY PRN ×3 (06:14→13:50)
[2024-03-14] MEDS: LORazepam 2 mg VIAL 1 ml IV PUSH ONE ×2 (06:19→14:01)
[2024-03-14] MEDS ORDERED: LORazepam 2 mg VIAL 1 ml IV PUSH PRN (10:05)
[2024-03-14] MEDS: Albuterol/Ipratropium NEB.SOL (2.5/0.5 MG) 3 ML NEB.SOLN INH ONE (10:22)
[2024-03-14] MEDS: LORazepam 2 mg VIAL 1 ml IV PUSH PRN (11:02)
[2024-03-14] MEDS: Morphine ORAL CONCENTRATE 5 MG/0.25 ML ORAL.SYRIN SL SCH (11:03)
[2024-03-14] MEDS: Scopolamine 1 mg/72hr PATCH TRANSDERM SCH (11:03)
[2024-03-14] MEDS: Morphine 2 MG/ML SYRINGE IV ONE (12:01)
[2024-03-14 12:26] LABS: Specimen Type WHOLE BLOOD EDTA
[2024-03-14] MEDS ORDERED: Naloxone 0.4 mg VIAL 0.4 mg/ml 1 ml VIAL IV PUSH PRN (13:15)
[2024-03-14] MEDS ORDERED: Vancomycin Trough Check NOTE FOLLOW UP ONE (14:30)
[2024-03-14] MEDS: Morphine PCA ADULT 5 MG/ML 30 ML PCA SCH (14:48)
[2024-03-14 19:55] LABS: AMLAF Result Summary Abnormal
[2024-03-15 20:14] LABS: BM Result Summary Abnormal
== END 2024-03-14 16:50 | disposition expired | DRG 834 ==
LOC: ED 09:30 → EDHOLD 09:30 → SUATTDRO 14:59 → MED 20:31 → SUATTDRO 03-08 12:00 → MED 03-11 20:17 → ICU 03-12 20:13 → MED 03-14 03:00
PROVIDERS: ADMIT Hospitalist; ATTEND Internal Medicine